=== PATIENT | male | born 1935 | race Caucasian/White ===

== ENCOUNTER 2017-05-30 08:33 | Outpatient (CLI) | payer MEDICARE, OTHER ==
[~2017-05-30] VITALS: Ht 177.8 cm; Wt 91.4 kg
--- NOTE | ~2017-05-30 | HEMODYNAMI ---
PATIENT:SONAM BANEGAS MEDICAL RECORD: [id number] : 33 LOCATION:D.CAT ADMISSION DATE: 05/30/17 Generatedon:05/30/201711:43 Patient name: SONAM BANEGAS Patient #: [id number] SSN: : 1935 Date of study: 05/30/2017 Page: Of Hemodynamic Procedure Report Patient Data Patient Demographics Procedure consent was obtained First Name: SONAM Gender: Male Last Name: BASSAM : 1935 Middle Initial: B Age: 81 year(s) Patient #: [id number] Race: Additional ID: [id number] Contact details Address: [address] [place] [address] State: [place] City: [facility] Zip code: [address] Past Medical History Allergies: No known allergies Admission Admission Data Admission Date: 05/30/2017 Admission Time: 8:33 Procedure Procedure Types Cath Procedure Diagnostic Procedure PPM/ICD Permanent Pacer Generator Exg. Procedure Description Procedure Date Procedure Date: 05/30/2017 Procedure Start Time: 10:36 Procedure Staff Name Function Glenroy Mccord MD Assisting physician Edmund Bain MD Performing Physician Chloe Rendon RN Nurse Cullen Sinha RT Scrub Pierce Magaña RT Monitor Procedure Data Cath Procedure Estimated blood loss: 10 ml Procedure Medications Medication Administration Route Dosage Ancef (1Gm/50ml NS) I.V.P.B 1 g Versed I.V. 1 mg Fentanyl I.V. 50 mcg Lidocaine 1% with added to field 20 ml Epi Bupivacaine 0.5% added to field 10 ml Hemodynamics Rest Heart Rate: 66 (bpm) Snapshots Pre Cath Intra NCS Post Cath Vital Signs Time Heart Resp SPO2 NIBP (mmHg) Rhythm Pain Sedation Rate (ipm) (%) Status Level (bpm) 10:58:50 64 16 97 116/82(105) NSR 0 (11) 10(A) , No pain 11:02:58 65 15 95 124/80(108) NSR 0 (11) 10(A) , No pain 11:07:10 65 13 91 122/79(105) NSR 0 (11) 10(A) , No pain 11:11:20 64 16 96 129/81(94) NSR 0 (11) 10(A) , No pain 11:15:32 66 18 92 130/82(111) NSR 0 (11) 10(A) , No pain 11:19:42 65 13 94 129/83(112) NSR 0 (11) 10(A) , No pain 11:23:54 64 14 92 136/83(113) NSR 0 (11) 9(A) , No pain 11:28:51 60 24 90 133/80(118) NSR 0 (11) 9(A) , No pain 11:33:03 60 14 94 132/84(112) NSR 0 (11) 9(A) , No pain 11:37:48 39 12 90 122/88(105) NSR 0 (11) 10(A) , No pain 11:42:00 60 14 95 135/77(113) NSR 0 (11) 10(A) , No pain Medications Time Medication Route Dose Verified Delivered Reason Notes Effectiv eness by by 11:15:08 Ancef I.V.P.B 1 g Chloe Chloe Per (1Gm/50ml Justice Justice physician NS) RN RN 11:15:25 Lidocaine added 20 ml Chloe Chloe used for 1% with Epi to Justice Justice procedure field RN RN 11:15:43 Bupivacaine added 10 ml Chloe Chloe used for 0.5% to Justice Justice procedure field RN RN 11:19:42 Versed I.V. 1 mg Chloe Chloe for Justice Justice sedation RN RN 11:19:57 Fentanyl I.V. 50 Chloe Chloe for mcg Justice Justice sedation RN parimutuel cashier Log Time Note 10:36:43 Informed consent obtained and on chart 10:36:48 Diagnostic Cath Status : Elective 10:38:53 Pierce Magaña RT(R) (CV) sent for patient. Start room use. 10:38:56 Time tracking: Regular hours 10:39:01 Plan of Care:Hemodynamics will remain stable., Cardiac rhythm will remain stable., Comfort level will be maintained., Respiratory function will remain adequate., Patient/ family verbilizes understanding of procedure., Procedure tolerated without complication., Recovers from procedure without complications.. 10:45:44 Patient received from Pre/Post Procedure Room to CCL 3 Alert and oriented. Tansferred to table in Supine position. 10:45:46 Warm blankets applied, and africa hugger turned on for patient comfort. 10:45:47 Correct patient and procedure confirmed by team. 10:45:52 ECG and BP/O2 sat monitors applied to patient. 10:57:50 Vital chart was started 11:10:25 Medline Cath Pack opened to sterile field. 11:10:47 Baseline sample Acquired. 11:11:17 Rhythm: paced 11:11:38 Full Disclosure recording started 11:12:31 H&P Date Dictated: 05/11/2017 Within 30 days and on chart., H&P Addendum completed by physician on day of procedure. (MUST COMPLETE FOR ALL OUTPATIENTS). 11:12:34 Pre-procedure instructions explained to patient. 11:12:35 Pre-op teaching completed and patient verbalized understanding. 11:12:38 Family in waiting room. 11:15:08 Ancef (1Gm/50ml NS) 1 g I.V.P.B was administered by Chloe Rendon RN; Per physician; 11:15:25 Lidocaine 1% with Epi 20 ml added to field was administered by Chloe Rendon RN; used for procedure; 11:15:43 Bupivacaine 0.5% 10 ml added to field was administered by Chloe Rendon RN; used for procedure; 11:16:55 Patient NPO since Midnight. 11:17:19 Patient allergic to No known allergies 11:17:22 Is the patient allergic to Iodine/contrast media? No. 11:17:25 Is patient on blood thinner?No 11:17:29 ----Pre-sedation anethsthesia assessment.---- 11:17:32 Previous problem with sedation/anesthesia? No ? 11:17:41 Snore? Yes 11:17:42 Sleep apnea? No 11:17:44 Deviated septum? No 11:17:45 Opens mouth fully? Yes 11:17:47 Sticks out tongue? Yes 11:17:51 Airway obstruction? No ? 11:18:04 Dentures? Yes implant 11:18:20 Patient pain scale 0/10 ?. 11:18:30 IV patent on arrival in right hand with 0.9% NaCl at [facility] 11:18:42 Left chest area was prepped with chlora-prep and draped in sterile fashion 11:18:44 Alarms reviewed by R. N. 11:18:45 Sharps counted by scrub and verified by R.N. 11:18:59 Physician arrived 11:18:59 --------ALL STOP TIME OUT------ 11:19:00 Final Timeout: patient, procedure, and site verified with staff and physician. All members of the team are in agreement. 11:19:04 Left chest site verified by team. 11:19:08 Physical assessment completed. ASA score P 2 - A patient with mild systemic disease as per Glenroy Mccord MD. 11:19:13 Sedation plan: IV Moderate Sedation Versed, Fentanyl 11:19:42 Versed 1 mg I.V. was administered by Chloe Rendon RN; for sedation; 11:19:57 Fentanyl 50 mcg I.V. was administered by Chloe Rendon RN; for sedation; 11:20:36 3.0 Vicryl Multipack [id number] opened to sterile field. 11:20:37 5.0 Monocryl PS3 [id number] opened to sterile field. 11:20:49 Medtronic Adapta PPM Dual Generator opened to sterile field. 11:20:55 Cautery Tip Outside Sales Executive opened to sterile field. 11:20:57 Cautery Pushbutton Pencil opened to sterile field. 11:21:33 Grounding pad site Left thigh. 11:21:35 Grounding pad site free from injury. 11:22:52 Pre sharps counted by scrub and verified by RN: Sutures: 9 Sponges: 5 Stick needles: 0 Skin needles: 2 Blade: 1 Cautery: 1 11:23:40 Lidocaine 1% w/epi and Bupivacaine 0.5% to left subclavicular area by Glenroy Mccord MD. 11:23:45 Incision made to left subclavicular area. 11:24:42 Generator pocket made/opened. 11:26:08 OLD GENERATOR REMOVED 11:26:24 PPM Dual was removed.. 11:26:31 PPM Dual was attached to lead(s) and inserted into pocket. 11:27:56 Mepilex Dressing opened to sterile field. 11:32:38 Device pocket was irrigated with Ancef. 11:33:01 Subcutaneous closure was completed with 3-0 vicryl. 11:33:24 Skin closure was completed with 5-0 monocryl. 11:38:30 Procedure ended.(Physican Out) 11:39:19 Post sharps counted by scrub and verified by RN: Sutures: 9 Sponges: 5 Stick needles: 0 Skin needles: 2 Blade: 1 Cautery: 1 11:39:38 Sharps counted by scrub and verified by R.N. 11:39:44 Insertion/operative site no bleeding no hematoma. 11:39:57 Post-op/insertion site Left Subclavian vein dressed using a Mepilex dressing. 11:40:06 Post right subclavian vein:stable 11:40:14 Post-procedure physical assessment completed. ASA score P 2 - A patient with mild systemic disease as per Glenroy Mccord MD. 11:40:18 Post procedure rhythm: paced 11:40:31 Estimated blood loss: 10 ml 11:40:36 Post procedure instruction explained to patient.Patient verbalizes understanding. 11:40:37 Patient needs reinforcement of post procedure teaching. 11:40:39 Procedure and supply charges have been captured, reviewed, submitted and are correct. 11:42:12 SEE [employer] REPORT IN CHART FOR NEW PACER PARAMETERS 11:42:18 Vital chart was stopped 11:42:19 See physician's report for complete and final results. 11:42:22 Report given to Pre/Post Procedure Room. 11:42:26 Patient transfered to Pre/Post Procedure Room with Stretcher. 11:42:53 End room use (Document Last) Device Usage Item Name Manufacture Quantity Catalog Hospital Part Current Minimal Lo t# / Number Charge Number Stock Stock Serial# Code Cautery Microtek 1 [id number] 5 [employer] Outside Sales Executive Mepilex Cardinal 1 [id number] 5 Dressing Health Cautery Microtek 1 [id number] [id number] 5 Pushbutton [employer] Pencil Medtronic Medtronic 1 [id number] 5 [id number] 623H EXP: Adapta PPM Dual Generator Medline Cardinal 1 [id number] 5 Cath Pack Health 3.0 Vicryl Ethicon 1 [id number] 5 Multipack [id number] 5.0 Ethicon 1 [id number] 5 Monocryl PS3 [id number] Signature Audit [place] Stage Time Signature Unsigned Intra-Procedure 05/30/2017 Pierce Magaña 11:43:35 AM RT(R) (CV) Signatures Monitor : Pierce Magaña RT Signature : Date : Time : [place] [address] [place] [address]
[2017-05-30] MEDS ORDERED: CATAPRES0.1 MG PO (09:13)
[2017-05-30] MEDS ORDERED: NORVASC10 MG PO (09:13)
[2017-05-30] MEDS ORDERED: PRADAXA150 MG PO (09:13)
[2017-05-30] MEDS ORDERED: PEPCID AC20 MG PO (09:14)
[2017-05-30] MEDS ORDERED: BETAPACE 120 M120 MG PO (09:14)
[2017-05-30] MEDS ORDERED: FISH OIL 1,0001 CA1 PO (09:15)
[2017-05-30] MEDS ORDERED: OXYBUTYNIN15 MG/BOTT PO (09:15)
[2017-05-30] MEDS ORDERED: BENICAR HCT 40-1 TA1 PO (09:15)
[2017-05-30] MEDS ORDERED: ASCORBIC ACID500 MG PO (09:16)
[2017-05-30] MEDS ORDERED: CALCIUM 250+D T1 TAB PO (09:16)
[2017-05-30] MEDS ORDERED: GLUCOSAMINE & C1 CAP PO (09:16)
[2017-05-30 09:17] VITALS: BP 115/76; Ht 177.8 cm; Wt 91.4 kg
[2017-05-30 09:43] LABS: APTT 29.1 SECONDS (22.8-39.4); CALC OSMOLALITY 289 mosm/kg (275-300); CALCIUM 9.3 mg/dL (8.5-10.1); CARBON DIOXIDE 27.7 mmol/L (21.0-32.0); CHLORIDE - SERUM 104 mmol/L (98-107); GLUCOSE 118 mg/dL (74-106); INR 1.03 (0.85-1.17); POTASSIUM - SERUM 4.3 mmol/L (3.5-5.1); PROTIME 13.3 SECONDS (11.6-15.0); SODIUM 141 mmol/L (136-145); UREA NITROGEN 34 mg/dL (7-18); eGFR NON AFRICAN AMERICAN 76 mL/min (90-120)
[2017-05-30 09:53] LABS: HEMATOCRIT 39.6 % (42.0-54.0); HEMOGLOBIN 13.3 g/dL (13.5-17.5); MCH 32.2 pg (26.0-34.0); MCHC 33.6 g/dL (31.0-37.0); MCV 95.9 fL (80.0-100.0); MEAN PLATELET VOLUME 11.5 fL (7.4-10.4); RBC 4.13 10x6/uL (4.20-6.10); RDW 13.3 % (11.5-14.5)
[2017-05-30] MEDS ORDERED: HYDROCODONE-APA1 TAB PO (11:38)
--- NOTE | 2017-05-30 12:05 | NUR ---
1150 RECEIVED PT FROM SURG PHYSICIAN ASST, PT IS ALERT, DENIES ANY C/O PAIN OR NAUSEA. DRESSING TO LEFT UPPER CHEST IS CDI, PO FLUIDS AND SANDWICH SERVED. AT BEDSIDE. RR EVEN AND UNLABORED. VSS, PACED RHYTHM AT 60. CALL LIGHT IN REACH.
--- NOTE | 2017-05-30 12:05 | NUR ---
1205 PT TOLERATING SANDWICH WITH NO C/O. DRESSING REMAINS CDI. PACED RHYTHM, RATE OF 60. AT BEDSIDE, PT DENIES ANY C/O OR NEED AT THIS TIME.
--- NOTE | 2017-05-30 12:53 | NUR ---
PIV REMOVED WITH DRESSING APPLIED. PACE MAKER SITE CDI. VERBAL AND WRITTEN DISCHARGE GONE OVER WITH PATIENT AND . LEFT VIA WC TO [facility] FOR TRANSPORT HOME
--- NOTE | 2017-06-02 14:51 | OP ---
PATIENT NAME: SONAM BANEGAS MEDICAL RECORD: [id number] :33 LOCATION:D.CAT ADMISSION DATE: SURGEON: DENILSON WOOD MD DATE OF OPERATION: 05/30/2017 PREOPERATIVE DIAGNOSES: 1. End-of-life pacemaker generator. 2. Hypertension. 3. Hypercholesterolemia. 4. Atrial fibrillation. 5. Sick sinus syndrome. POSTOPERATIVE DIAGNOSES: 1. End-of-life pacemaker generator. 2. Hypertension. 3. Hypercholesterolemia. 4. Atrial fibrillation. 5. Sick sinus syndrome. PROCEDURE: Left subclavian vein generator exchange. SURGEON: Denilson Wood MD. REPORT OF PROCEDURE: The patient's left chest was prepped and draped in sterile fashion. A 20 mL of 1% lidocaine combined with 0.25% Marcaine with epinephrine were infused into the surrounding tissues. A skin incision was made overlying the pacemaker and electrocautery was used to dissect through the subcutaneous tissue. Once the pacemaker was visualized, it was removed from the subcutaneous pouch. The pacemaker was exchanged for a new generator. The new generator was placed in to the subcutaneous pouch. The subcutaneous tissues were irrigated out and then reapproximated with interrupted 3-0 Vicryl and the skin was closed with running subcutaneous 5-0 Monocryl. COMPLICATIONS: None. CONDITION: Stable. ANESTHESIA: Local. BLOOD LOSS: Minimal. TRANSINT:[id number] Voice Confirmation ID: [id number] DOCUMENT ID: [id number] DENILSON WOOD MD at 1451 CC: SOFI MUELLER MD [id number] DICTATION DATE: 05/30/17 1137 METALLURGICAL INSPECTOR: 05/30/178 DEP CLI 05/30/17 [facility] [address] [place] [address]
== END 2017-05-30 13:00 | disposition home or self-care (01) ==
LOC: D.CATH 08:33
PROVIDERS: Internal Medicine Interventional Cardiology
DX: Z45.010 Encounter for checking and testing of cardiac pacemaker pulse generator [battery] (principal); I10 Essential (primary) hypertension; E78.00 Pure hypercholesterolemia, unspecified; I48.91 Unspecified atrial fibrillation; I49.5 Sick sinus syndrome; Z01.812 Encounter for preprocedural laboratory examination

== ENCOUNTER 2017-05-31 14:58 | Outpatient (CLI) | payer MEDICARE, OTHER ==
[2017-05-31] VITALS (14 sets, daily range): BP systolic 120–135; BP diastolic 47–79; Ht 177.8 cm; Wt 92.3 kg
[~2017-05-31] VITALS: Ht 177.8 cm; Wt 92.3 kg
--- NOTE | ~2017-05-31 | HEMODYNAMI ---
PATIENT:SONAM BANEGAS MEDICAL RECORD: [id number] : 33 [address] [id number] ADMISSION DATE: 05/31/17 Generatedon:05/31/201716:53 Patient name: SONAM BANEGAS Patient #: [id number] SSN: : [id number] Date of study: 05/31/2017 Page: Of Hemodynamic Procedure Report Patient Data Patient Demographics Procedure consent was obtained First Name: SONAM Gender: Male Last Name: BASSAM : 1935 [facility] Initial: B Age: 81 year(s) Patient #: [id number] Race: Additional ID: [id number] Contact details Address: [address] [place] [address] State: [place] City: [facility] Zip code: [address] Past Medical History Allergies: No known allergies Admission Admission Data Admission Date: 05/31/2017 Admission Time: 15:36 Room #: [facility] Lab Results Lab Result Date: 05/31/2017 Lab Result Time: 0:00 Biochemistry Name Units Result Min Max BUN mg/dl 31 --(----)-* 7 18 Creatinine mg/dl 1.1 --(--*-)-- 0.6 1.3 CBC Name Units Result Min Max Hemoglobin g/dl 13.1 -*(----)-- 13.5 17.5 Procedure Procedure Types Cath Procedure Diagnostic Procedure [facility] w/Coronaries FFR/IVUS Intra-Coronary IVUS Initial PCI Procedure Coronary Stent Initial Miscellaneous Procedures Moderate Sedation up to 30 minutes Procedure Description Procedure Date Procedure Date: 05/31/2017 Procedure Start Time: 16:29 Procedure End Time: 16:53 Procedure Staff Name Function Edmund Bain MD Performing Physician Guero Ozuan RN Nurse Cullen Sinha RT Monitor Torres Miller RT Scrub Procedure Data Cath Procedure Fluoroscopy Diagnostic fluoroscopy Total fluoroscopy Time: 5.3 time: 5.3 min min Diagnostic fluoroscopy Total fluoroscopy dose: 829 dose: 829 mGy mGy Contrast Material Contrast Material Type Amount (ml) Isovue 300 113 Entry Location Entry Primary Successful Side Size Upsize Upsize Entry Closure Succes sful Closure Location (Fr) 1 (Fr) 2 (Fr) Remarks Device Remarks Femoral Right 6 Fr Exoseal artery Short Estimated blood loss: 10 ml Diagnostic catheters Device Type Used For End Catheter Placement Cordis 5Fr Pigtail Procedure Catheter (MP) Cordis 5Fr JL 4.0 Procedure Catheter (MP) Cordis 5Fr 3DRC Catheter Procedure (MP) Procedure Complications No complications Procedure Medications Medication Administration Route Dosage Oxygen NC 2 l/min Lidocaine 2% added to field 20 Heparin Flush Bag added to field 2 bags (1000units/500ml NS) 0.9% NaCl I.V. 100 ml/hr Versed I.V. 1 mg Fentanyl I.V. 50 mcg Heparin Bolus I.V. 4000 units Integrilin (Bolus I.V. 8.5 ml 2mg/ml) Versed I.V. 1 mg Fentanyl I.V. 50 mcg Versed I.V. 0.5 mg Plavix P.O. 600 mg Hemodynamics Rest HGB: 13.1 (g/dl) Heart Rate: 61 (bpm) Snapshots Pre Cath Intra NCS Post Cath Vital Signs Time Heart Resp SPO2 etCO2 NS0eyun NIBP (mmHg) Rhythm Pain Sedation Rate (ipm) (%) (mmHg) (mmHg) Status Level (bpm) 16:23:45 60 18 99 0 0 136/73(110) NSR 0 (11) 10(A) , No pain 16:27:59 60 15 96 0 0 134/68(107) NSR 0 (11) 10(A) , No pain 16:32:11 61 15 96 0 0 126/73(87) NSR 0 (11) 9(A) , No pain 16:36:19 59 16 95 0 0 127/78(93) NSR 0 (11) 9(A) , No pain 16:40:31 60 15 97 0 0 124/71(103) NSR 0 (11) 9(A) , No pain 16:44:41 60 14 95 0 0 125/74(108) NSR 0 (11) 9(A) , No pain 16:48:46 59 15 98 0 0 127/77(96) NSR 0 (11) 9(A) , No pain 16:52:34 61 16 98 0 0 124/71(100) NSR 0 (11) 10(A) , No pain Medications Time Medication Route Dose Verified Delivered Reason Notes Effectiveness by by 16:22:57 Oxygen NC 2 Edmund Buffie used for l/min Taya Ozuna RN procedure 16:23:03 Lidocaine 2% added 20ml Edmunddelia Shaffer for local to vial Taya Bain MD anesthetic field 16:23:09 Heparin Flush added 2 Edmund Edmund used for Bag to bags Taya Bain MD procedure (1000units/500ml field NS) 16:23:17 0.9% NaCl I.V. 100 Edmund Buffie Per physician ml/hr Taya Ozuna RN 16:25:46 Versed I.V. 1 mg Edmund Moiseie for sedation Taya Ozuna RN 16:25:52 Fentanyl I.V. 50 Edmund Moiseie for sedation mcg Taya Ozuna RN 16:29:17 Versed I.V. 1 mg Edmund Jack for sedation Taya Ozuna RN 16:29:20 Fentanyl I.V. 50 Edmund Moiseie for sedation mcg Taya Ozuna RN 16:34:10 Heparin Bolus I.V. 4000 Edmund Moiseie for verifi ed units Taya Ozuna RN anticoagulation with dr bain 16:37:10 Integrilin I.V. 8.5 Edmund Moiseie for Wastd (Bolus 2mg/ml) ml Taya Ozuna RN antiplatelet 1.5 ml therapy of vial. 16:43:14 Versed I.V. 0.5 Edmund Moiseie for sedation mg Taya Ozuna RN 16:51:40 Plavix P.O. 600 Edmund Moiseie for mg Taya Ozuna RN antiplatelet therapy Procedure Log Time Note 15:50:40 Torres Miller RT(R) sent for patient. Start room use. 16:04:41 Time tracking: Regular hours 16:04:46 Plan of Care:Hemodynamics will remain stable., Cardiac rhythm will remain stable., Comfort level will be maintained., Respiratory function will remain adequate., Patient/ family verbilizes understanding of procedure., Procedure tolerated without complication., Recovers from procedure without complications.. 16:07:52 Lab Result : Creatinine 1.1 mg/dl 16:07:52 Lab Result : BUN 31 mg/dl 16:07:52 Lab Result : Hemoglobin 13.1 g/dl 16:15:41 Patient arrives emergently. 16:15:48 Patient received from ED to CCL 1 Alert and oriented. Tansferred to table in Supine position. 16:15:50 Warm blankets applied, and africa hugger turned on for patient comfort. 16:15:50 Correct patient and procedure confirmed by team. 16:15:52 Signed procedure consent form obtained from patient. 16:15:56 ECG and BP/O2 sat monitors applied to patient. 16:22:36 Vital chart was started 16:22:57 Oxygen 2 l/min NC was administered by Guero Ozuna RN; used for procedure; 16:23:03 Lidocaine 2% 20ml vial added to field was administered by Edmund Bain MD; for local anesthetic; 16:23:04 Baseline sample Acquired. 16:23:09 Heparin Flush Bag (1000units/500ml NS) 2 bags added to field was administered by Edmund Bain MD; used for procedure; 16:23:11 Rhythm: paced 16:23:12 Full Disclosure recording started 16:23:15 H&P Date Dictated: 05/31/2017 Emergent; H&P N/A. 16:23:17 0.9% NaCl 100 ml/hr I.V. was administered by Guero Ozuna RN; Per physician; 16:23:17 Pre-procedure instructions explained to patient. 16:23:18 Pre-op teaching completed and patient verbalized understanding. 16:23:19 Family in patients room. 16:23:22 Patient NPO since Midnight. 16:23:23 Is the patient allergic to Iodine/contrast media? No. 16:23:25 Is patient on blood thinner?No 16:23:26 Patient diabetic? No. 16:23:29 Previous problem with sedation/anesthesia? No ? 16:23:30 Snore? Yes 16:23:31 Sleep apnea? No 16:23:32 Deviated septum? No 16:23:33 Opens mouth fully? Yes 16:23:33 Sticks out tongue? Yes 16:23:35 Airway obstruction? No ? 16:23:37 Dentures? No ? 16:23:40 Pre procedure: right dorsailis pedis pulse 1+ Palpable, but thready & weak; easily obliterated 16:23:43 Patient pain scale 0/10 ?. 16:23:46 IV patent on arrival in left forearm with 0.9% NaCl at [facility]. 16:23:48 Lab results completed and on chart. 16::52 Right groin area was prepped with chlora-prep and draped in sterile fashion 16:23:53 Alarms reviewed by R. N. 16::54 Sharps counted by scrub and verified by R.N. 16::55 --------ALL STOP TIME OUT------ 16::55 Final Timeout: patient, procedure, and site verified with staff and physician. All members of the team are in agreement. 16::57 Right groin site verified by team. 16:24:02 Physical assessment completed. ASA score P 2 - A patient with mild systemic disease as per Edmund Bain MD. 16:24:06 Sedation plan: IV Moderate Sedation Versed, Fentanyl 16::46 Versed 1 mg I.V. was administered by Guero Ozuna RN; for sedation; 16:25:52 Fentanyl 50 mcg I.V. was administered by Guero Ozuna RN; for sedation; 16::52 Zero performed for pressure channel P1 16:25:54 Zero performed for pressure channel P1 16:26:29 Use device set Femoral Dx 16:26:30 Tegaderm 4 x 4 opened to sterile field. 16:26:31 Acist Hand Control opened to sterile field. 16:26:31 Acist Manifold opened to sterile field. 16:26:33 Acist Syringe opened to sterile field. 16:26:33 Bag Decanter opened to sterile field. 16:26:33 Medline Cath Pack opened to sterile field. 16:26:35 St Tsyon 260cm J .035 wire opened to sterile field. 16:26:36 Diagnostic Infinity 5Fr Multipack catheter opened to sterile field. 16:26:52 Terumo 6Fr [place] Sheath opened to sterile field. 16:29:16 Procedure started. 16:29:17 Versed 1 mg I.V. was administered by Guero Ozuna RN; for sedation; 16:29:20 Fentanyl 50 mcg I.V. was administered by Guero Ozuna RN; for sedation; 16:29:20 Local anesthetic to right femoral artery with Lidocaine 2% by Edmund Bain MD.INITIAL ACCESS ONLY 16:29:53 A 6 Fr Short sheath was inserted into the Right Femoral artery 16:30:00 A Cordis 5Fr Pigtail Catheter (MP) was advanced over the wire and used for Procedure. 16:30:41 LV angiography performed. 16:30:43 LV gram done using JUNG 16:30:48 EF : 40 % 16:30:52 Injector settings: Ml/sec: 10, Volume: 20, 16:30:54 Catheter removed. 16:31:01 A Cordis 5Fr JL 4.0 Catheter (MP) was advanced over the wire and used for Procedure. 16:31:41 LCA angiography performed. 16:31:43 Caro Whisper J 300cm 0.014 guide wire opened to sterile field. 16:31:43 ScoutforceixCompak Inflation Kit opened to sterile field. 16:32:24 Catheter removed. 16:32:28 A Cordis 5Fr 3DRC Catheter (MP) was advanced over the wire and used for Procedure. 16:32:37 RCA angiography performed. 16:32:39 Catheter removed. 16:33:24 Elrama [place] Eagleye IVUS Catheter opened to sterile field. 16:33:25 Cordis 6FR XBLAD 4.0 guide catheter opened to sterile field. 16:34:10 Heparin Bolus 4000 units I.V. was administered by Guero Ozuna RN; for anticoagulation; verified with dr bain 16:34:18 6 Fr XBLAD 4 guide catheter was inserted over the wire 16:35:18 Guide Catheter removed. unable to cannulate vessel. 16:35:27 Medtronic Launcher 6Fr EBU 4.0 guide catheter opened to sterile field. 16:35:36 6 Fr EBU 4 guide catheter was inserted over the wire 16:36:26 Whisper wire advanced. 16:37:00 Wire advanced across lesion and down the Circ. 16:37:03 IVUS catheter advanced over wire. 16:37:10 Integrilin (Bolus 2mg/ml) 8.5 ml I.V. was administered by Guero Ozuna RN; for antiplatelet therapy; Wastd 1.5 ml of vial. 16:37:37 IVUS pass to Circ lesion performed. 16:37:49 IVUS catheter removed over wire. 16:38:05 Wire redirected down the LAD. 16:40:36 Study PCI Site: [place] mLAD has 80% stenosis. 16:40:39 ACC Pre-intervention ARMANI Flow is 3. 16:41:15 Wire advanced across lesion. 16:42:14 Inflation Number: 1 A Biofreedom 2.25 x 24 Stent (No Cost Implant) was prepped and advanced across the Mid LAD. The stent was deployed at 15 TREVOR for 0:10 (min:sec). 16:43:14 Versed 0.5 mg I.V. was administered by Guero Ozuna RN; for sedation; 16:44:46 Stent catheter was removed intact over wire. 16:44:58 Inflation Number: 2 A Biofreedom 2.25 x 11 Stent (No Cost Implant) was prepped and advanced across the Mid LAD. The stent was deployed at 17 TREVOR for 0:10 (min:sec). 16:45:44 Stent catheter was removed intact over wire. 16:45:44 Wire removed. 16:45:45 Guide catheter removed. 16:46:04 Cordis 6Fr Exoseal opened to sterile field. 16:46:15 Sheath removed intact; hemostasis achieved with Exoseal to the Right Femoral artery. 16:46:18 Procedure ended.(Physican Out) 16:47:18 Fluoroscopy time 05.30 minutes. 16:47:22 Fluoroscopy dose: 829 mGy 16:47:22 Flurop Dose total: 829 16:47:25 Contrast amount:Isovue 300 113ml. 16:47:27 Sharps counted by scrub and verified by R.N. 16:47:33 Insertion/operative site no bleeding no hematoma. 16:47:36 Post-op/insertion site Right Femoral artery dressed using a 4 x 4 and Tegaderm. 16:47:38 Post Procedure Pulses reassessed and unchanged 16:47:41 Post-procedure physical assessment completed. ASA score P 2 - A patient with mild systemic disease as per Edmund Bain MD. 16:47:59 Post procedure rhythm: paced 16:48:02 Estimated blood loss: 10 ml 16:48:06 Post procedure instruction explained to patient.Patient verbalizes understanding. 16:48:07 Patient needs reinforcement of post procedure teaching. 16:48:47 Procedure type changed to Cath procedure, Diagnostic procedure, LHC, LHC w/Coronaries, FFR/IVUS, Intra-Coronary IVUS Initial, PCI procedure, Coronary Stent Initial, Miscellaneous Procedures, Moderate Sedation up to 30 minutes 16:48:51 Procedure Complication : No complications 16:50:08 Procedure and supply charges have been captured, reviewed, submitted and are correct. 16:51:40 Plavix 600 mg P.O. was administered by Guero Ozuna RN; for antiplatelet therapy; 16:53:04 Vital chart was stopped 16:53:04 See physician's report for complete and final results. 16:53:06 Report given to CVICU. 16:53:10 Patient transfered to CVICU with Bed. 16:53:11 Procedure ended. 16:53:11 Full Disclosure recording stopped 16:53:14 End room use (Document Last) Intervention Summary Intervention Notes Time ActionType Lesion and Equipment Action# Pressure Duration Attributes Used 16:42:14 Place stent Mid LAD Biofreedom 1 15 00:10 2.25 x 24 Stent (No Cost Implant) 16:44:58 Place stent Mid LAD Biofreedom 2 17 00:10 2.25 x 11 Stent (No Cost Implant) Device Usage Item Name Manufacture Quantity Catalog Hospital Part Current Minimal Lot# / Number Charge Number Stock Stock Serial# Code Tegaderm 4 3M 1 1626W [id number] [id number] [id number] 5 x 4 Acist Hand Acist 1 24883 151985 831655 057461 5 Control Medical Systems Inc Acist Acist 1 21374 180519 641174 797212 5 Manifold Medical Systems Inc Acist Acist 1 46273 388737 517908 615628 20 Syringe Medical Systems Inc Bag Microtek 1 2002S 167495 59737 476310 5 DecSleep.FM Inc. Medline Cardinal 1 [id number] 846403 08212 8197[address] Tyson 1 524783 004867 485347 065125 30 260cm J .035 wire Diagnostic Cardinal 1 [id number] 884887 78805 637739 30 Infinity Health 5Fr Multipack catheter Terumo 6Fr Terumo 1 [id number] 474360 050894 418787 40 Alexandria Sheath Cordis 5Fr Cardinal 1 816058 5 Pigtail Health Catheter (MP) Cordis 5Fr Cardinal 1 442755 5 JL 4.0 Health Catheter (MP) Caro Caro 1 [id number] 070143 186372 922082 5 Whisper J Vascular 300cm 0.014 guide wire Merit Merit 1 [id number] 447554 909313 387113 15 BasixCompak Medical Inflation Kit Cordis 5Fr Cardinal 1 [id number] [address] [place] [address] Catheter (MP) Jessenia Holdeno 1 [id number] 360228 705879 607907 8 [place] Eagleye IVUS Catheter Cordis 6FR Cardinal 1 [id number] 390465 882509 876114 3 XBLAD 4.0 Health guide catheter Medtronic Medtronic 1 [id number] 578479 31083 469332 1 Launcher 6Fr EBU 4.0 guide catheter Biofreedom [employer] [address] [facility]2-2224 176248 603261 5 [id number] 2.25 x 24 Europe SA Stent (No Cost Implant) Biofreedom [employer] [address] [facility]-2211 713623 528334 5 [id number] 2.25 x 11 Europe SA Stent (No Cost Implant) Cordis 6Fr Cardinal 1 EX600 842967 985256 352000 10 [facility] TILE Financial Signature Audit [place] Stage Time Signature Unsigned Intra-Procedure 05/31/2017 Cullen Sinha 4:53:35 PM RT(R) Signatures Monitor : Cullen Sinha RT Signature : Date : Time : [id number] [place] [address]
[2017-05-31 13:10] LABS: BASOPHILS 0.8 % (0-2); EOSINOPHILS 5.5 % (0-7); HEMATOCRIT 38.5 % (42.0-54.0); HEMOGLOBIN 13.1 g/dL (13.5-17.5); IMMATURE GRANULOCYTES 0.2 % (0-5); LYMPHOCYTES 13.3 % (15-50); MCH 32.6 pg (26.0-34.0); MCV 95.8 fL (80.0-100.0); MEAN PLATELET VOLUME 10.9 fL (7.4-10.4); MONOCYTES 10.6 % (2-11); NEUTROPHILS 69.6 % (40-80); PLATELET COUNT 194 10x3/uL (130-400); RBC 4.02 10x6/uL (4.20-6.10); RDW 13.2 % (11.5-14.5)
[2017-05-31 13:21] LABS: ALBUMIN 3.5 g/dL (3.4-5.0); ALKALINE PHOSPHATASE 68 U/L (46-116); ALT (SGPT) 47 U/L (10-68); BILIRUBIN - TOTAL 0.54 mg/dL (0.2-1.3); CALC OSMOLALITY 285 mosm/kg (275-300); CALCIUM 9.2 mg/dL (8.5-10.1); CARBON DIOXIDE 29.3 mmol/L (21.0-32.0); CHLORIDE - SERUM 102 mmol/L (98-107); CREATININE - SERUM 1.1 mg/dL (0.6-1.3); GLUCOSE 106 mg/dL (74-106); POTASSIUM - SERUM 4.1 mmol/L (3.5-5.1); PROTEIN - SERUM 6.6 g/dL (6.4-8.2); SODIUM 140 mmol/L (136-145); UREA NITROGEN 31 mg/dL (7-18); eGFR NON AFRICAN AMERICAN 68 mL/min (90-120)
[2017-05-31 13:32] LABS: CHOL - HDL RATIO 2.5 ratio (2.3-4.9); CHOLESTEROL, TOTAL 154 mg/dL (0-200); CKMB 3.6 U/L (0.0-3.6); CREATINE KINASE 130 UL (21-232); HDL CHOLESTEROL 61 mg/dL (32-96); LDL CHOLESTEROL 82 mg/dL (0-100); LDL-HDL RATIO 1.3 ratio (1.5-3.5); TRIGLYCERIDE 57 mg/dL (30-200); TROPONIN-I 0.054 ng/mL (0.000-0.060)
[~2017-05-31 14:58] MED LIST: ASCORBIC ACID500 MG PO; BENICAR HCT 40-1 TA1 PO; BETAPACE 120 M120 MG PO; CALCIUM 250+D T1 TAB PO; CATAPRES0.1 MG PO; FISH OIL 1,0001 CA1 PO; GLUCOSAMINE & C1 CAP PO; HYDROCODONE-APA1 TAB PO; NORVASC10 MG PO; OXYBUTYNIN15 MG/BOTT PO; PEPCID AC20 MG PO; PRADAXA150 MG PO
--- NOTE | 2017-05-31 17:30 | NUR ---
RECIEVED PT TO ROOM FROM SIZE ROLLER OPERATOR. VSS AT THIS TIME. RIGHT GROIN DRESSING C/D/I. PPP. CALL LIGHT IN REACH. INSTRUCTED TO KEEP RIGHT LEG STRAIGHT. VERBALIZED UNDERSTANDING. CALL LIGHT IN REACH.
--- NOTE | 2017-05-31 19:40 | NUR ---
REC'D PT RESTING IN BED ON O2 @ 2LITERS, AWAKENS TO VERBAL STIMULI, PT DENIES PAIN OR NAUSEA, LEFT A/C PIV WITH NS @ 100CC/HR, RIGHT GROIN DRSG TO EXOSEAL, CDI NO BLEEDING OR HEMATOMA, PT REMAINS ON BEDREST AT THIS TIME, EXPLAINED TO PT HIS BEDREST WOULD BE UP AROUND 2129, VERBALIZES UNDERSTANDING, PPP, BED IN LOW POSITION, SR UP X 2, CALL LIGHT IN REACH.
--- NOTE | 2017-05-31 20:15 | NUR ---
PT HUNGRY, ICE WATER PROVIDED WILL ASSESS FOR NAUSEA BEFORE ADVANCING DIET
--- NOTE | 2017-05-31 20:35 | NUR ---
PT DENIES NAUSEA, PT PROVIDEDD WITH SANDWICH TRAY, BED PLACED IN [place] TO ASSIST WITH EATING
--- NOTE | 2017-05-31 21:05 | NUR ---
EVENING MEDS GIVEN, PT ATE 85% OF HIS MEAL, DENIES FURTHER NEEDS.
--- NOTE | 2017-05-31 21:45 | NUR ---
PT ALLOWED TO SIT UP AT THIS TIME, BED ADJUSTED FOR COMFORT, PT VOIDED 300 YELLOW URINE VIA URINAL, DENIES PAIN OR OTHER NEEDS, SR UP X 2, BED IN LOW POSITION, CALL LIGHT IN REACH.
--- NOTE | 2017-05-31 23:30 | NUR ---
PT RESTING ON RIGHT SIDE EYES CLOSED, REASSESSMENT COMPLETED, RIGHT GROIN DRSG REMAINS CDI, NO BLEEDING OR HEMATOM, PT DENIES PAIN OR NAUSEA, VSS, WILL CONT TO MONITOR FOR CHANGES.
[2017-06-01] VITALS (8 sets, daily range): BP systolic 122–144; BP diastolic 64–75
--- NOTE | 2017-06-01 01:00 | NUR ---
NO CHANGES IN STATUS AT THIS TIME, VSS, WILL CONT TO MONITOR FOR CHANGES.
--- NOTE | 2017-06-01 02:30 | NUR ---
PT AWAKE, URINAL EMPTIED OF 300CC CLEAR YELLOW URINE, RIGHT GROIN DRSG CDI NO BLEEDING OR HEMATOMA NOTED, QUESTIONS ANSWERED REGARDING RIGHT GROIN DRSG, PT DENIES PAIN OR OTHER NEEDS.
--- NOTE | 2017-06-01 04:00 | NUR ---
PT RESTING IN BED EYES CLOSED, RESP EVEN AND UNLABORED, BP STABLE, NO DISTRESS NOTED.
--- NOTE | 2017-06-01 06:00 | NUR ---
NO VISITORS IN AT THIS TIME, PT DENIES NEEDS, SR UP X 2, CALL LIGHT IN REACH.
--- NOTE | 2017-06-01 07:00 | NUR ---
SHIFT ASSESSMENT COMPLETE. SEE FLOW SHEET FOR FINDINGS. PT ALERT AND ORIENTED. BILATERAL PALPABLE PULSES UPPER AND LOWER. RIGHT GROIN SITE IS SOFT, DRESSING CLEAN, DRY AND INTACT. LEFT CHEST DRESSING IS CLEAN, DRY AND INTACT. PT ON ROOM AIR.
--- NOTE | 2017-06-01 07:50 | NUR ---
PT CALLED NURSE IN C/O FEELING "DISORIENTED" HE IS WORRIED HE DID SOMETHING WRONG WHEN HE GOT UP TO URINATE ABOUT AN HOUR OR SO AGO. HE SAYS HIS RIGHT LEG FEELS A LITTLE TINGLY. HAS STRONG PALPABLE PULSES IN BILATERAL LEGS. RIGHT GROIN ENTRY SITE IS SOFT, CLEAN AND DRY. BREATH SOUNDS CLEAR, NO DISTRESS. HEART RATE IN LOW 60'S, PACING. OXYGEN SATS UPPER 90'S. THERE IS NO DISTRESS NOTED OTHER THAN WHAT PATIENT DESCRIBES.
--- NOTE | 2017-06-01 08:18 | NUR ---
TONI FROM VP GENETIC TEAM OVER TO CHECK UP ON PATIENT. WAS ALERTED TO PATIENT COMPLAINT.
[2017-06-01] MEDS ORDERED: PLAVIX75 MG PO (10:13)
--- NOTE | 2017-06-02 11:24 | HP ---
PATIENT: SONAM BANEGAS MEDICAL RECORD: [id number] ACCOUNT: [id number] LOCATION:[facility] : 33 ADMISSION DATE: 05/31/17 HISTORY AND PHYSICAL EXAMINATION DIAGNOSES: 1. Unstable angina. 2. Sick sinus syndrome. 3. Status post pacemaker. 4. Pradaxa anticoagulation. 5. Hypertension. 6. Hyperlipidemia. 7. Paroxysmal atrial fibrillation. HISTORY OF PRESENT ILLNESS: This is a gentleman with a history of cardiac rhythm problems. No history of ischemic heart disease, underwent pacemaker exchange yesterday, got a dull aching sensation across the anterior chest. It broke out into a sweat and it radiated to his neck. This morning, his troponin is mildly elevated. He has not had a history of ischemic heart disease. PHYSICAL EXAMINATION: GENERAL APPEARANCE: Well-nourished, well-developed, appears stated age. Level of distress, comfortable. PSYCHIATRIC: Mental status, alert, normal affect. Orientation, oriented to time, place and person. EYES: Lids and conjunctiva, noninjected. No discharge, no pallor. ENT: Lips, teeth, gums, normal dentition. Oropharynx, no cyanosis, no pallor. NECK: Carotid arteries, bilateral normal upstroke, no bruits, no thrills. JUGULAR VEINS: No jugular venous pressure or distention. CERVICAL LYMPH NODES: Nontender, nonenlarged. THYROID: Not enlarged. Nontender. No nodules. LUNGS: Respiratory effort, unlabored. CHEST: Normal curvature. No thoracic deformity. No chest wall tenderness. Percussion, resonant. Auscultation, clear. No wheezes, no rales, no rhonchi. CARDIOVASCULAR: Precordial exam, nondisplaced. No heaves or pericardial thrills. Rate and rhythm, regular. Heart sounds, normal S1, normal S2. No S3, no gallop, no rub. Systolic murmur, not heard. Diastolic murmur, not heard. EXTREMITIES: No cyanosis, no edema. Peripheral pulses, full and equal in all extremities, except as noted. No bruits appreciated. ABDOMEN: Soft, nondistended. Normal aorta. No bruit. Nontender. No masses. Liver, nontender, no hepatomegaly. Spleen, nontender, no splenomegaly. MUSCULOSKELETAL: No joint tenderness. No joint swelling. No erythema. NEUROLOGICAL: Normal gait, normal strength, normal tone. SKIN: Warm and dry. REVIEW OF SYSTEMS: The patient reports easy bruising but reports no swollen glands. The patient reports no fever, no night sweats, no significant weight gain, no significant weight loss. No significant exercise tolerance. The patient reports no dry eyes, no irritation, no vision change. Patient reports no difficulty hearing and no ear pain. Patient reports no frequent nose bleeds or nose and sinus problems. Patient reports on arm pain on exertion. No shortness of breath while lying down. No history of heart murmur. Patient reports no cough, no wheezing or coughing up blood. Patient reports no abdominal pain, no vomiting. Normal appetite. No diarrhea and not vomiting blood. No nausea and no constipation. Patient reports no incontinence. No HISTORY AND PHYSICAL [id number] SONAM BANEGAS difficulty urinating. No hematuria. No increased frequency. Patient reports no muscle aches. No weakness, no arthralgias, no back pain. No swelling of the extremities. Patient reports no abnormal mole, no jaundice, no rashes. Reports no loss of consciousness. No weakness and no numbness. No seizures, dizziness, or headaches. The patient reports no depression, no sleep disturbance, feeling safe in a relationship and no alcohol abuse. Patient reports on fatigue. Reports no runny nose or sinus pressure. No itching, no hives, and no frequent sneezing. OVERALL IMPRESSION: Chest pain compatible with angina, abnormal troponin. Most likely he has hemodynamically significant coronary artery disease. We will proceed with coronary angiography. Further care depends upon findings of the angiography. TRANSINT:[id number] Voice Confirmation ID: [id number] DOCUMENT ID: [id number] SOFI MUELLER MD at 1124 CC: [id number] DICTATION DATE: 05/31/17 1557 SCROLL SHEAR OPERATOR: 05/31/17 2154 [facility] CLI 06/01/17 [place] [id number] [place] [id number]
--- NOTE | 2017-06-02 11:24 | OP ---
PATIENT NAME: SONAM BANEGAS MEDICAL RECORD: [id number] :33 LOCATION:D.CAT ADMISSION DATE: SURGEON: SOFI MUELLER MD DATE OF OPERATION: 05/31/2017 PROCEDURES: 1. PTCA stent LAD. 2. Intravascular ultrasound of left circumflex. 3. Left heart catheterization. 4. Selective coronary angiography. 5. Left ventriculogram. INDICATION: Angina, unstable, coronary artery disease. PROCEDURE IN DETAIL: After informed consent was obtained and after detailed explanation of risks, benefits as well as alternative therapies, the patient elected to proceed with angiogram and angioplasty. The right femoral area was prepped and draped in normal sterile fashion. The right femoral artery was cannulated via modified Seldinger technique with placement of 6-Macedonian sheath. All catheters exchanged through this sheath. FINDINGS: Left ventriculogram was performed in standard 30-degree JUNG view, reveals anteroapical hypokinesis, ejection fraction 40%. SELECTIVE CORONARY ANGIOGRAPHY: 1. Left main is with no significant angiographic disease. 2. Left anterior descending has 80% stenosis throughout the mid portion vessel. 3. Left circumflex has mild irregularities, intravascular ultrasound reveals that there is no greater than 20% to 30%. 4. Right coronary has mild irregularities, but no flow-limiting stenosis. PTCA STENT OF THE LAD: The stent used covering this lesion was a 2.25 x 24 and 2.25 x 11. This lesion was approximately 30 mm in length at 2.25 vessel ARMANI 3 flow before and after the intervention. Result was 0% residual stenosis. OVERALL IMPRESSION: Successful percutaneous transluminal coronary angioplasty stent of the left anterior descending going from 80% initial stenosis to 0% residual. TRANSINT:[id number] Voice Confirmation ID: [id number] DOCUMENT ID: [id number] SOFI MUELLER MD at 1124 CC: [id number] DICTATION DATE: 05/31/17 165 HORTICULTURE SUPERINTENDENT: 06/01/17 0055 [facility] CLI 06/01/[address] [address]
--- NOTE | 2017-06-02 11:24 | DS ---
PATIENT:SONAM SUH :33 MEDICAL RECORD: [id number] DISCHARGE SUMMARY ADMISSION DATE: 05/31/17 DISCHARGE DATE: 06/01/17 DISCHARGE DIAGNOSES: 1. Angina. 2. Coronary artery disease. 3. Percutaneous transluminal coronary angioplasty stent to left anterior descending this admission. 4. Sick sinus syndrome. 5. Paroxysmal atrial fibrillation. 6. Status post pacemaker. 7. Hypertension. HISTORY OF PRESENTATION: General Suh presented with anginal symptomatology, underwent cardiac catheterization revealing single vessel disease to the LAD, underwent successful PTCA stent of the LAD, had uneventful postop course. He was discharged to home with the addition of Plavix to his Pradaxa with no aspirin. He will follow up with [facility] in 1 month. TRANSINT:[id number] Voice Confirmation ID: [id number] DOCUMENT ID: [id number] SOFI MUELLER MD at 1124 CC: [id number] DICTATION DATE: 06/01/17 0903 BROOMCORN PRESS FEEDER: 06/02/17 0243 [facility] CLI 06/01/17 [place] [id number] [place] [address]
== END 2017-06-01 10:32 | disposition home or self-care (01) ==
LOC: OBSVTIME → D.CATH 14:58 → EDSTATUS 15:00 → OBSVTIME 15:36 → D.CVICU 15:36 → D.ER 15:36 → D.CVICU 16:50 → D.CATH 06-01 10:32 → D.CVICU 06-01 10:32
PROVIDERS: Emergency Medicine
DX: I25.110 Atherosclerotic heart disease of native coronary artery with unstable angina pectoris (principal); Z00.6 Encounter for examination for normal comparison and control in clinical research program; I49.5 Sick sinus syndrome; I48.0 Paroxysmal atrial fibrillation; I10 Essential (primary) hypertension; Z95.0 Presence of cardiac pacemaker
CPT/HCPCS: 93458; 92978; C9600

== ENCOUNTER 2019-07-10 10:13 | Outpatient (CLI) | payer MEDICARE, OTHER ==
[~2019-07-10] VITALS: Ht 177.8 cm; Wt 92.3 kg
--- NOTE | ~2019-07-10 | HEMODYNAMI ---
PATIENT:SONAM BANEGAS MEDICAL RECORD: [id number] : 33 LOCATION:DMustaphaCAT ADMISSION DATE: 07/10/19 Generatedon:07/10/201912:47 Patient name: SONAM BANEGAS Patient #: [id number] SSN: : 1935 Date of study: 07/10/2019 Page: Of Hemodynamic Procedure Report Patient Data Patient Demographics Procedure consent was obtained First Name: SONAM Gender: Male Last Name: BASSAM : 1935 [facility] Initial: B Age: 83 year(s) Patient #: [id number] Race: Additional ID: [id number] Contact details Address: [address] [place] [address] State: [place] City: [facility] Zip code: [address] Past Medical History Allergies: No known allergies Admission Admission Data Admission Date: 07/10/2019 Admission Time: 10:13 Procedure Procedure Types Cath Procedure Diagnostic Procedure Cardioversion External Procedure Description Procedure Date Procedure Date: 07/10/2019 Procedure Start Time: 12:38 Procedure End Time: 12:47 Procedure Staff Name Function Edmund Bain MD Performing Physician Cullen Sinha RT Monitor Tea Hagan RN Nurse Procedure Data Cath Procedure Fluoroscopy Diagnostic fluoroscopy Total fluoroscopy Time: 0 time: 0 min min Diagnostic fluoroscopy Total fluoroscopy dose: 0 dose: 0 mGy mGy Contrast Material Contrast Material Type Amount (ml) Isovue 300 0 Estimated blood loss: 10 ml Procedure Complications No complications Procedure Medications Medication Administration Route Dosage 0.9% NaCl I.V. 100 ml/hr Oxygen etCO2 Nasal cannula 4 l/min Versed I.V. 2 mg Versed I.V. 2 mg Fentanyl I.V. 150 mcg Hemodynamics Rest Heart Rate: 102 (bpm) Snapshots Pre Cath Intra NCS Post Cath Vital Signs Time Heart Resp SPO2 etCO2 NIBP (mmHg) Rhythm Pain Sedation Rate (ipm) (%) (mmHg) Status Level (bpm) 12:31:47 102 17 96 22.5 138/87(111) A-Flutter 0 (11) 10(A) , No pain 12:36:05 102 14 98 38.3 85/67(76) A-Flutter 0 (11) 10(A) , No pain 12:40:45 97 17 98 34.6 122/80(111) Paced 0 (11) 9(A) , No pain 12:44:04 98 16 94 30.1 119/85(95) Paced 0 (11) 10(A) , No pain Medications Time Medication Route Dose Verified Delivered Reason Notes Effective ness by by 12:32:08 0.9% NaCl I.V. 100 Edmund Tea used for ml/hr Taya Hagan research laboratory manager 12:32:20 Oxygen etCO2 4 Edmund Tea used for Nasal l/min Taya Hagan procedure cannula RN 12:38:14 Versed I.V. 2 mg Edmund Tea for Taya Hagan sedation RN 12:38:39 Fentanyl I.V. 150 Edmund Zaragozayla for mcg Taya Hagan sedation RN 12:39:29 Versed I.V. 2 mg Edmund Tea for Taya Hagan sedation blocker heated metal forms Log Time Note 12:00:15 Tea Hagan RN sent for patient. Start room use. 12:16:17 Time tracking: Regular hours (M-F 7:00 - 5:00) 12:16:20 Plan of Care:Hemodynamics will remain stable., Cardiac rhythm will remain stable., Comfort level will be maintained., Respiratory function will remain adequate., Patient/ family verbilizes understanding of procedure., Procedure tolerated without complication., Recovers from procedure without complications.. 12:17:38 Quick Combo opened to sterile field. 12:21:27 Patient arrived from Pre/Post Procedure Room to CCL 3. Patient remains on bed/stretcher for procedure. 12:21:30 Signed procedure consent form obtained from patient. 12:21:31 Warm blankets applied, and africa hugger turned on for patient comfort. 12:21:32 Correct patient and procedure confirmed by team. 12:21:33 ECG and BP/O2 sat monitors applied to patient. 12:30:41 Vital chart was started 12:30:54 Baseline sample Acquired. 12:31:12 Rhythm: paced, atrial fibrillation, atrial flutter 12:31:21 Full Disclosure recording started 12:31:33 H&P Date Dictated: 07/04/2019 Within 30 days and on chart., H&P Addendum completed by physician on day of procedure. (MUST COMPLETE FOR ALL OUTPATIENTS). 12:31:34 Pre-procedure instructions explained to patient. 12:31:34 Pre-op teaching completed and patient verbalized understanding. 12:31:36 Family in patients room. 12:31:38 Patient NPO since Breakfast. 12:32:08 0.9% NaCl 100 ml/hr I.V. was administered by Tea Hagan RN; used for procedure; 12:32:16 UNABLE TO USE ANESTHESIA DUE TO PT EATING BREAKFAST, PROCEEDING WITH MODERATE SEDATION PER DR BAIN. 12:32:19 Is the patient allergic to Iodine/contrast media? No. 12:32:20 Oxygen 4 l/min etCO2 Nasal cannula was administered by Tea Hagan RN; used for procedure; 12:32:20 Is patient on blood thinner?Yes 12:32:23 ACC The patient was administered the following blood thiners within the last 24 hours: Xarelto 12:32:25 Patient diabetic? No. 12:32:27 Previous problem with sedation/anesthesia? No ? 12:32:28 Snore? Yes 12:32:30 Sleep apnea? No 12:32:31 Deviated septum? No 12:32:31 Opens mouth fully? Yes 12:32:32 Sticks out tongue? Yes 12:32:34 Airway obstruction? No ? 12:32:35 Dentures? No ? 12:32:41 IV patent on arrival in left hand with 0.9% NaCl at O. 12:32:43 Lab results completed and on chart. 12:33:12 Alarms reviewed by Solitario Wallace 12:33:18 Quick combo pads placed on patients chest and back. 12:37:18 --------ALL STOP TIME OUT------ 12:37:19 Final Timeout: patient, procedure, and site verified with staff and physician. All members of the team are in agreement. 12:37:48 Fire Safety Assessment: C--Open oxygen or nitrous oxide is being used., E--There are other possible contributors. 12:37:50 Physical assessment completed. ASA score P 2 - A patient with mild systemic disease as per Edmund Bain MD. 12:37:54 Sedation plan: IV Moderate Sedation Medication:Versed, Fentanyl 12:38:11 Procedure started. 12:38:14 Versed 2 mg I.V. was administered by Tea Hagan RN; for sedation; 12:38:14 Defibrillator synced and charged to 175 Joules. 12:38:16 Shock delivered. 12:38:39 Fentanyl 150 mcg I.V. was administered by Tea Hagan RN; for sedation; 12:39:23 Unsuccessful cardioversion. 12:39:29 Versed 2 mg I.V. was administered by Tea Hagan RN; for sedation; 12:39:36 Defibrillator synced and charged to 275 Joules. 12:39:38 Shock delivered. 12:39:44 Patient cardioverted to sinus rhythm , paced. 12:40:55 Procedure ended.(Physican Out) 12:41:18 Fluoroscopy time 00.00 minutes. 12:41:19 Fluoroscopy dose: 0 mGy 12:41:19 Flurop Dose total: 0 12:41:20 Dose Area Product ? mGy/cm. 12:41:22 Contrast amount:Isovue 300 0ml. 12:41:31 Post-procedure physical assessment completed. ASA score P 2 - A patient with mild systemic disease as per Edmund Bain MD. 12:41:36 Post procedure rhythm: sinus rhythm , paced 12:41:39 Estimated blood loss: 10 ml 12:41:41 Post procedure instruction explained to patient.Patient verbalizes understanding. 12:41:42 Patient needs reinforcement of post procedure teaching. 12:41:50 Procedure and supply charges have been captured, reviewed, submitted and are correct. 12:41:52 Procedure Complication : No complications 12:47:15 Vital chart was stopped 12:47:16 See physician's report for complete and final results. 12:47:18 Report given to Pre/Post Procedure Room. 12:47:20 Patient transfered to Pre/Post Procedure Room with Stretcher. 12:47:22 Procedure ended. 12:47:22 Full Disclosure recording stopped 12:47:26 End room use (Document Last) Device Usage Item Manufacture Quantity Catalog Hospital Part Current Minimal Lot# / Name Number Charge Number Stock Stock Seri al# Code [employer] DataSearch 1 [id number] Combo Signature Audit [place] Stage Time Signature Unsigned Intra-Procedure 07/10/2019 Cullen Sinha 12:47:43 PM RT(R) Signatures Performing Physician : Signature : Edmund Bain MD Date : Time : Monitor : Cullen Sinha RT Signature : Date : Time : Nurse : eTa Hagan RN Signature : Date : Time : [address] [place] [address]
[~2019-07-10 10:13] MED LIST changes: +PLAVIX75 MG PO
[2019-07-10] MEDS ORDERED: OXYBUTYNIN CHLOR5 M1 PO (10:33)
[2019-07-10] MEDS ORDERED: FOLIC ACID1 MG PO (10:33)
[2019-07-10] MEDS ORDERED: PROTONIX20 MG PO (10:35)
[2019-07-10] MEDS ORDERED: AMIODARONE HCL200 MG PO (10:35)
[2019-07-10] MEDS ORDERED: MULTI-DAY VITAM1 TAB PO (10:36)
[2019-07-10] MEDS ORDERED: XARELTO20 MG PO (10:44)
[2019-07-10 10:47] VITALS: BP 115/71; Ht 177.8 cm; Wt 92.3 kg
[2019-07-10 11:20] LABS: BASOPHILS 0.5 % (0-2); EOSINOPHILS 3.4 % (0-7); HEMATOCRIT 37.6 % (42.0-54.0); HEMOGLOBIN 12.7 g/dL (13.5-17.5); IMMATURE GRANULOCYTES 0.3 % (0-5); LYMPHOCYTES 12.6 % (15-50); MCH 31.5 pg (26.0-34.0); MCHC 33.8 g/dL (31.0-37.0); MCV 93.3 fL (80.0-100.0); MEAN PLATELET VOLUME 10.4 fL (7.4-10.4); MONOCYTES 9.6 % (2-11); NEUTROPHILS 73.6 % (40-80); PLATELET COUNT 223 10x3/uL (130-400); RBC 4.03 10x6/uL (4.20-6.10)
[2019-07-10 11:21] LABS: ANION GAP 13.8 mmol/L (8-16); CALCIUM 8.8 mg/dL (8.5-10.1); CARBON DIOXIDE 27.4 mmol/L (21.0-32.0); CREATININE - SERUM 1.3 mg/dL (0.6-1.3); INR 0.94 (0.85-1.17); POTASSIUM - SERUM 4.2 mmol/L (3.5-5.1); PROTIME 12.1 SECONDS (11.6-15.0)
--- NOTE | 2019-07-10 12:50 | NUR ---
PT RECEIVED VIA STRETCHER FROM PUMP ASSEMBLER POST UNSUCCESFUL CARDIOVERSION. PT AWAKE AND ALERT BUT DROWSY. HR 77, REMAINS IN FLUTTER, BP 113/62, 02 SAT 96 ON 2L/NC. IV PATENT INFUSING VIA ORDERS TO L ARM. UPPER CHEST SLIGHTLY REDDNED FROM PROCEDURE, PT DENIES PAIN OR DISCOMFORT. DR MUELLER AT BEDSIDE, DISCUSSING W AND PT PROCEDURE RESULTS AND PLAN OF CARE. CALL LIGHT IN REACH
--- NOTE | 2019-07-10 13:15 | NUR ---
PT RESTING QUIETLY W EYES CLOSED. HR 75, BP 114/66, 02 SAT 95. CALL LIGHT IN REACH, AT BEDSIDE.
--- NOTE | 2019-07-10 13:35 | NUR ---
PT RESTING COMFORTABLY, VSS. PT DENIES PAIN OR NEEDS AT THIS TIME. AT BEDSIDE, CALL LIGHT IN REACH
--- NOTE | 2019-07-10 13:45 | NUR ---
DISCHARGE INSTRUCTIONS REVIEWED W PT AND , BOTH VERBALIZED UNDERSTANDING. IV REMOVED W CATH INTACT, MONITORS REMOVED AND PT UP TO DRESS FOR DISCHARGE W ASSIT FROM .
--- NOTE | 2019-07-10 14:00 | NUR ---
PT DISCHARGED VIA WC TO WAITING IN PRIVATE VEHICLE. PT HAS ALL BELONGINGS AND DISCHARGE PAPERWORK.
--- NOTE | 2019-07-17 14:31 | OP ---
PATIENT NAME: SONAM BANEGAS MEDICAL RECORD: [id number] :34 LOCATION:D.CAT ADMISSION DATE: SURGEON: SOFI MUELLER MD DATE OF OPERATION: 07/10/2019 PROCEDURES: 1. DC cardioversion. 2. Pacemaker interrogation. INDICATION: Atrial flutter. DESCRIPTION OF PROCEDURE: He received IV conscious sedation. Continuous heart rate, O2 saturation, blood pressure monitoring all undertaken, all of which remained stable. He received shocks at 175 and 275 joules as well as burst pacing with the pacemaker. Each time he would go from his atrial flutter to sinus rhythm, then immediately revert back to the atrial flutter. OVERALL IMPRESSION: Successful DC cardioversion and atrial burst pacing, but the pacemaker from atrial flutter to sinus rhythm; however, immediately would revert back to atrial flutter. Evaluate for ablation. TRANSINT:[id number] Voice Confirmation ID: [id number] DOCUMENT ID: [id number] SOFI MUELLER MD at 1431 CC: [id number] DICTATION DATE: 07/10/19 1242 TOOL SHARPENER: 07/10/19 1248 DEP CLI 07/10/19 [place] [id number] [place] [id number]
== END 2019-07-10 14:00 | disposition home or self-care (01) ==
LOC: D.CATH 10:13
PROVIDERS: ATTEND Internal Medicine Interventional Cardiology
DX: I48.92 Unspecified atrial flutter (principal); Z01.812 Encounter for preprocedural laboratory examination

== ENCOUNTER 2019-11-15 10:26 | Emergency (ER) | payer MEDICARE, OTHER ==
[~2019-11-15] VITALS: Ht 177.8 cm; Wt 88.6 kg
[~2019-11-15 10:26] MED LIST changes: +AMIODARONE HCL200 MG PO; +FOLIC ACID1 MG PO; +MULTI-DAY VITAM1 TAB PO; +OXYBUTYNIN CHLOR5 M1 PO; +PROTONIX20 MG PO; +XARELTO20 MG PO
[2019-11-15 10:29] VITALS: Ht 177.8 cm; Wt 88.6 kg
[2019-11-15] MEDS ORDERED: DDAVP0.1 MG PO (11:02)
[2019-11-15 11:44] LABS: BASOPHILS 0.3 % (0-2); EOSINOPHILS 1.4 % (0-7); HEMATOCRIT 34.4 % (42.0-54.0); HEMOGLOBIN 11.5 g/dL (13.5-17.5); IMMATURE GRANULOCYTES 0.2 % (0-5); LYMPHOCYTES 7.8 % (15-50); MCH 31.9 pg (26.0-34.0); MCHC 33.4 g/dL (31.0-37.0); MCV 95.6 fL (80.0-100.0); MONOCYTES 10.8 % (2-11); NEUTROPHILS 79.5 % (40-80); PLATELET COUNT 247 10x3/uL (130-400); RDW 13.2 % (11.5-14.5); WBC 11.9 10x3/uL (4.8-10.8)
[2019-11-15 11:45] LABS: CALC OSMOLALITY 290 mosm/kg (275-300); CARBON DIOXIDE 30.5 mmol/L (21.0-32.0); CHLORIDE - SERUM 105 mmol/L (98-107); CREATININE - SERUM 1.2 mg/dL (0.6-1.3); GLUCOSE 95 mg/dL (74-106); POTASSIUM - SERUM 4.4 mmol/L (3.5-5.1); SODIUM 143 mmol/L (136-145); UREA NITROGEN 28 mg/dL (7-18); eGFR NON AFRICAN AMERICAN 61 mL/min (90-120)
[2019-11-15 11:59] LABS: ALBUMIN 3.4 g/dL (3.4-5.0); ALKALINE PHOSPHATASE 94 U/L (46-116); ALT (SGPT) 57 U/L (10-68); BILIRUBIN - TOTAL 0.64 mg/dL (0.2-1.3); CKMB 7.6 U/L (0.0-3.6); MAGNESIUM - SERUM 1.9 mg/dL (1.8-2.4); PROTEIN - SERUM 6.3 g/dL (6.4-8.2); TROPONIN-I 0.059 ng/mL (0.000-0.060)
[2019-11-15 12:44] LABS: COLOR YELLOW (YELLOW)
[2019-11-15 12:45] LABS: APPEARANCE HAZY (CLEAR); BILIRUBIN NEGATIVE (NEGATIVE); GLUCOSE NEGATIVE (NEGATIVE); KETONE NEGATIVE (NEGATIVE); NITRITE POSITIVE (NEGATIVE); PROTEIN NEGATIVE (NEGATIVE); SPECIFIC GRAVITY 1.005 (1.005-1.020); UROBILINOGEN NORMAL (NORMAL)
[2019-11-15 12:48] LABS: RED CELLS - URINE NONE SEEN /hpf (0-5)
[2019-11-15 12:49] LABS: BACTERIA MODERATE /hpf (NEGATIVE); EPITHELIAL CELLS NSEEN /hpf (0-5)
[2019-11-15 12:59] VITALS: BP 150/75
[2019-11-15] MEDS ORDERED: MOBIC7.5 MG PO (13:32)
[2019-11-15] MEDS ORDERED: CIPRO250 MG PO (13:32)
[2019-11-15] MEDS ORDERED: SKELAXIN800 MG PO (13:32)
== END 2019-11-15 14:08 | disposition home or self-care (01) ==
LOC: D.ER 10:26
PROVIDERS: Family Medicine
DX: S00.12XA Contusion of left eyelid and periocular area, initial encounter (principal); W19.XXXA Unspecified fall, initial encounter; Y93.01 Activity, walking, marching and hiking; Y92.9 Unspecified place or not applicable; M25.552 Pain in left hip; M25.511 Pain in right shoulder; N39.0 Urinary tract infection, site not specified; Z86.73 Personal history of transient ischemic attack (TIA), and cerebral infarction without residual deficits; I10 Essential (primary) hypertension; Z95.0 Presence of cardiac pacemaker; I48.91 Unspecified atrial fibrillation

== ENCOUNTER → 2020-01-20 13:41 | Outpatient (CLI) | payer MEDICARE, OTHER ==
[2019-11-15 10:29] VITALS: BMI 28.0
[~2020-01-20 13:41] MED LIST changes: +CIPRO250 MG PO; +DDAVP0.1 MG PO; +MOBIC7.5 MG PO; +SKELAXIN800 MG PO
== END | disposition home or self-care (01) ==
LOC: D.RAD 13:41
PROVIDERS: ATTEND Clinical Nurse Specialist Family Health
DX: M25.511 Pain in right shoulder (principal)

== ENCOUNTER 2020-01-31 22:22 | Inpatient (IN) | payer MEDICARE, OTHER ==
[~2020-01-31] VITALS: Ht 177.8 cm; Wt 74.8 kg
[2020-01-31] MEDS ORDERED: CATAPRES0.1 MG PO (23:08)
[2020-01-31] MEDS ORDERED: BETAPACE 80 MG80 MG PO (23:08)
[2020-01-31] MEDS ORDERED: PACERONE100 MG PO (23:09)
[2020-01-31] MEDS ORDERED: BENICAR40 MG PO (23:09)
[2020-01-31] MEDS ORDERED: OXYBUTYNIN CHLOR5 MG PO (23:09)
[2020-01-31 23:14] LABS: HEMATOCRIT 38.4 % (42.0-54.0); HEMOGLOBIN 12.6 g/dL (13.5-17.5); LYMPHOCYTES 12.7 % (15-50); MCHC 32.8 g/dL (31.0-37.0); MCV 94.3 fL (80.0-100.0); MEAN PLATELET VOLUME 10.8 fL (7.4-10.4); NEUTROPHILS 73.3 % (40-80); PLATELET COUNT 220 10x3/uL (130-400); RBC 4.07 10x6/uL (4.20-6.10); RDW 13.3 % (11.5-14.5); WBC 10.1 10x3/uL (4.8-10.8)
[2020-01-31 23:16] LABS: ANION GAP 10.9 mmol/L (8-16); CARBON DIOXIDE 28.2 mmol/L (21.0-32.0); CREATININE - SERUM 1.8 mg/dL (0.6-1.3); POTASSIUM - SERUM 4.1 mmol/L (3.5-5.1)
[2020-01-31 23:23] LABS: BILIRUBIN NEGATIVE (NEGATIVE); GLUCOSE NEGATIVE (NEGATIVE); KETONE NEGATIVE (NEGATIVE); NITRITE NEGATIVE (NEGATIVE); SPECIFIC GRAVITY 1.015 (1.005-1.020); UROBILINOGEN NORMAL (NORMAL)
[2020-01-31 23:31] LABS: ALBUMIN 3.3 g/dL (3.4-5.0); BILIRUBIN - TOTAL 0.42 mg/dL (0.2-1.3); MAGNESIUM - SERUM 1.7 mg/dL (1.8-2.4); PROTEIN - SERUM 6.3 g/dL (6.4-8.2); THYROID STIMULATING HORMONE 0.9 uIU/mL (0.36-3.74); TROPONIN-I 0.024 ng/mL (0.000-0.060)
[2020-02-01] VITALS (10 sets, daily range): BP systolic 122–151; BP diastolic 67–84; Ht 177.8 cm; Wt 74.8 kg
--- NOTE | 2020-02-01 07:15 | NUR ---
RECEIVED PT IN BED EYES CLOSED RESP UNLABORED SKIN W/D COLOR WNL NAD NOTED
[2020-02-01] MEDS ORDERED: AMIODARONE HCL200 MG (07:48)
[2020-02-01] MEDS ORDERED: MECLIZINE HCL25 MG PO (07:50)
--- NOTE | 2020-02-01 19:45 | NUR ---
REPORT RECIEVED AND INITIAL ROUNDS COMPLETED. PT RESTING IN BED WITH NO DISTRESS. IVF INFUSING. SR WITH 1ST DEGREE BLOCK PER TELEMETRY. NONLABORED RESPIRATIONS ON ROOM AIR. PT TEACHING ON WHY ORTHOSTATIC BP'S ARE BEING MONITORED. CPOC.
--- NOTE | 2020-02-01 23:41 | NUR ---
BEDTIME MEDS GIVEN. ASSISTED PT TO TRY AND CALL HIS . CALL LIGHT IN REACH. USING URINAL. CPOC.
[2020-02-02] VITALS (10 sets, daily range): BP systolic 117–149; BP diastolic 64–95
--- NOTE | 2020-02-02 04:00 | NUR ---
PT HAS BEEN USING URINAL ALL NIGHT. CALLS NOW FOR ASSIST TO CHANGE HIS BRIEF. NOTED CHUX IS DAMP AND SO IS HIS GOWN. CARE PROVIDED. NEW LINENS/GOWN/BRIEF. PULLED UP AND REPOSITIONED. IVF INFUSING. CPOC.
[2020-02-02 04:53] LABS: CALCIUM 8.9 mg/dL (8.5-10.1); CARBON DIOXIDE 28.6 mmol/L (21.0-32.0); CREATININE - SERUM 1.5 mg/dL (0.6-1.3); MAGNESIUM - SERUM 1.5 mg/dL (1.8-2.4); POTASSIUM - SERUM 3.6 mmol/L (3.5-5.1)
--- NOTE | 2020-02-02 06:56 | NUR ---
REPORT TO ONCOMING NURSE. PT HAS RESTED THROUGH THE NIGHT. NO DISTRESS. CPOC.
--- NOTE | 2020-02-02 07:20 | NUR ---
RECIEVE REPORT. ALERT AND ORIENTED X4. DR. BELLA AT BEDSIDE. ASSIST UP TO RESTROOM X2 PEOPLE ASSIST. GAIT UNSTEADY. SINUS RYTHM 1st DEGREE BLOCK. DENIES ANY OTHER NEEDS. CONTINUE PLAN OF CARE AND SAFETY PRECAUTIONS.
--- NOTE | 2020-02-02 07:30 | HP ---
PATIENT: SONAM BANEGAS MEDICAL RECORD: [id number] ACCOUNT: [id number] LOCATION:[address] : 34 ADMISSION DATE: 02/01/20 PCP: STEPHANIE DIMAS MD HISTORY AND PHYSICAL EXAMINATION REASON FOR ADMISSION: Generalized weakness and fall. 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 He states that he has some generalized weakness and balance difficulties moderately since a fall in November when he tore his right supraspinatus tendon. He has been noticing for the last 2 weeks when he would sit up out of bed, his head would feel like it was burning and lightheaded and dizzy and then he could gradually get up. 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 When he got to the bathroom with his walker, he says his legs got weak, he was very lightheaded and almost fell, in fact did fall against the wall without loss of consciousness. He says his legs just felt significantly weak, he could not really walk unassisted. His had public health worker arrived and he was brought to the ED. He denies any new headache, visual changes of new onset or slurred speech. He said his feet feel numb for the last several months. On presentation to the ED, his saturation was 96% and he had no neuro deficit except for marked weakness of the lower extremities. He has a history of remote right occipital CVA several years ago, no symptoms now compatible with that. 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 PAST SURGICAL HISTORY: He has had open prostatectomy, cataract surgery of both eyes, appendectomy, deviated septum repair, pacemaker placement, PTCA. FAMILY HISTORY: Parents are . Dad of old age at 92. Mother of a stroke at 65. 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 . Quit smoking years ago. Does not drink alcohol heavily. ALLERGIES: None. HOME MEDICATIONS: L-methylfolate 1 cap b.i.d., amlodipine 10 mg daily, losartan 100/25 one daily, desmopressin 0.1 mg p.o. b.i.d., famotidine 20 mg b.i.d., pantoprazole 1 tab daily, clonidine 0.1 p.r.n. for elevated blood pressure. REVIEW OF SYSTEMS: CONSTITUTIONAL: He has been fatigued for the last several weeks, worse the last several days. Denied fever or cough. HEENT: No recent visual change, but does have chronic deficit in his left visual field. No recent sinus congestion or sore throat. He has chronic hearing difficulty. RESPIRATORY: No severe cough heard. CARDIAC: No palpitations, PND, orthopnea, claudication. HISTORY AND PHYSICAL [id number] SONAM BANEGAS GASTROINTESTINAL: No nausea, vomiting, change in stools or blood per rectum. GENITOURINARY: Has chronic urinary incontinence. MUSCULOSKELETAL: Has arthritis in his hips and knees. NEUROLOGIC: Denies headache, history of seizure. He does complain of numbness in the bottoms of his feet that is becoming more prominent. PSYCHIATRIC: Denies depressed mood. PHYSICAL EXAMINATION: VITAL SIGNS: Temperature 98.2, pulse 67 and regular, respirations are 18, blood pressure 125/70 and O2 sat 96%. GENERAL: The patient is alert and oriented. HEENT: Eyes are clear with lens implants, decrease visual field in the left noted. Oropharynx unremarkable. NECK: Supple, without bruits. CHEST: Clear. HEART: Regular rate. ABDOMEN: Soft, nontender, no organomegaly. GENITOURINARY: Deferred. EXTREMITIES: No CC&E. NEUROLOGIC: Oriented to person, place, and time. Cranial nerves are intact. His motor strength is decreased in both lower extremities and the quadriceps He has good plantar flexion. Sensation; decreased sensation to touch in bottoms of both feet. Reflexes 1+ throughout. IMAGING AND LABORATORY DATA: CT of the brain shows old right occipital CVA. Lab shows normal urinalysis. White count 10,000, H&H of 12.6 and 38.4, BUN and creatinine are 43 and 1.8, his normal is 40 and 1.4, magnesium is 1.7. ProBNP is 457. Chest x-ray, no acute cardiopulmonary disease. Cardiac pacing is noted in the right atrium and right ventricle. ASSESSMENT: Near syncope, probably due to orthostatic hypotension, [id number] renal insufficiency, hypomagnesemia, history of AFib flutter, sick sinus syndrome, prostate cancer, remote cerebrovascular accident. PLAN: We will hold antihypertensives. Monitor blood pressure. We will hydrate cautiously. Cardiac monitoring. PT to evaluate. Further workup pending clinical course. TRANSINT:[id number] Voice Confirmation ID: [id number] DOCUMENT ID: [id number] ASHA BELLA MD at 0730 CC: [id number] DICTATION DATE: 02/01/20 0940 HEEL CEMENTER: 02/01/20 1040 ADM [place] [id number] [place] [id number]
--- NOTE | 2020-02-02 17:11 | NUR ---
ALERT AND ORIENTED X4. UNABLE TO COMPLETE STANDING ORTHOSTATIC BP DUE TO TREMORS AND DIZZINESS. SINUS RYTHM 61 WITH 1st DEGREE BLOCKE. CONTINUE PLAN OF CARE AND SAFETY PRECAUTIONS.
--- NOTE | 2020-02-02 19:45 | NUR ---
REPORT RECIEVED AND INITIAL ROUNDS COMPLETED. PT TRYING TO GET OFF HIS WET BRIEF. ASSISTED WITH PERSONAL CARE, PUTTING ON NEW BRIEF, CLEAN GOWN AND ALSO CHANGED ALL LINENS ON HIS BED. PT TALKATIVE, ALERT AND SOMETIMES FORGETUFL, THEN WILL CORRECT HIMSELF IF HE REALIZES HE IS REPEATING HIMSELF. SALINE LOCK TO LEFT A/C. NONLABORED RESPIRATIONS ON ROOM AIR. CALL LIGHT IN REACH.
--- NOTE | 2020-02-02 22:42 | NUR ---
BEDTIME MEDS HAVE BEEN GIVEN. PT RESTING WITH NO DISTRESS. DID GIVE A XANAX TO HELP HIM SLEEP BETTER TONIGHT. PT STATES HE HAS NOT SLEPT WELL BEING IN THE HOSPITAL. ORTHO BP'S DONE. GAIT IS VERY UNSTEADY EVEN WITH USE OF WALKER. CALL LIGHT IN REACH. FALL PRECAUTIONS.
[2020-02-03] VITALS (11 sets, daily range): BP systolic 105–137; BP diastolic 55–86
[2020-02-03 05:19] LABS: T4 THYROXIN - FREE 1.55 ng/dL (0.76-1.46); THYROID STIMULATING HORMONE 0.59 uIU/mL (0.36-3.74)
--- NOTE | 2020-02-03 07:53 | NUR ---
RECIEVE REPORT. ALERT AND ORIENTED X4. SITTING UP IN CHAIR. DENIES ANY NEEDS. CONTINUE PLAN OF CARE AND SAFETY PRECAUTIONS.
--- NOTE | 2020-02-03 12:30 | MORECARE ---
CASE MANAGEMENT DISCHARGE SUMMARY PATIENT: MOODY BANEGAS UNIT: [id number] ADM DATE: 02/01/20 AGE: 84 : 34 SEX: M ROOM/BED: D.2116 AUTHOR: NOLA EDWARDS PHYSICIAN: REFERRING PHYSICIAN: STEPHANIE DIMAS MD DATE OF SERVICE: 02/03/20 Discharge Plan Patient Name: MOODY BANEGAS Facility: [facility]:[place] : 1935 Planned Disposition: Custodial Facility Anticipated Discharge Date: 02/04/20 Discharge Date: Expected LOS: 3 Initial Reviewer: [email or web address] Initial Review Date: 02/03/2020 Generated: 02/03/20 1:29 pm DCP- Discharge Planning Updated by [email or web address]: Génesis Grace on 02/01/20 2:[address] BANSAL EXPLAINED ORIGINAL PROVIDED. COPY PLACED ON CHART. DCPIA - Discharge Planning Initial Assessment Updated by [email or web address]: Moody Toure on 02/03/20 12:30 pm * Is the patient Alert and Oriented? Yes * How many steps to enter\exit or inside your home? NONE * PCP DR. DIMAS * Pharmacy [facility] * Preadmission Environment Home with Family * ADLs Independent * Equipment None * Other Equipment NO MEDICAL EQUIPMENT PROVIDER PREFERENCE * List name and contact numbers for known caregivers / representatives who currently or will assist patient after discharge: GREYSON BANEGAS, SPOUSE, * Verbal permission to speak to the caregivers and representatives has been obtained from the patient. N/A * Community resources currently utilized None * Please name any agencies selected above. NONE * Additional services required to return to the preadmission environment? No * Can the patient safely return to the preadmission environment? Yes * Has this patient been hospitalized within the prior 30 days at any hospital? No External Providers External Provider: [facility] / [facility] Next Contact Date: 02/03/2020 Service Request Date: Service Type: Resolution: Reviewer: Comments: Coverage Notice Reviewer: [email or web address] - Génesis Grace Notice Issued Date-Time: 02/01/2020 15:10 Notice Type: Medicare Outpatient Observation Notice Notice Delivered To: Patient Relationship to Patient: Mixing Operator Name: Delivery Method: HAND - Hand Delivered Jessica Days: Prior Verbal Notification: Yes Recipient Understood Notice: Yes Recipient Signature: Med Rec Note Co-signed by Attending: Coverage Notice Comment: Reviewer: LUDMILA Toure Notice Issued Date-Time: 02/03/2020 11:40 Notice Type: IM Discharge Notice Notice Delivered To: Patient Relationship to Patient: Mixing Operator Name: Delivery Method: HAND - Hand Delivered Jessica Days: Prior Verbal Notification: Recipient Understood Notice: Yes Recipient Signature: Yes Med Rec Note Co-signed by Attending: Coverage Notice Comment: Reviewer: LUDMILA Toure Notice Issued Date-Time: 02/03/2020 11:40 Notice Type: Patient Choice Letter Notice Delivered To: Patient Relationship to Patient: Mixing Operator Name: Delivery Method: HAND - Hand Delivered Jessica Days: Prior Verbal Notification: Recipient Understood Notice: Yes Recipient Signature: Yes Med Rec Note Co-signed by Attending: Coverage Notice Comment: REEMA Patient Name: MOODY BANEGAS Page [id number] at 1230 All edits/amendments must be made on the electronic document DICTATION DATE: 02/03/20 1229 GLOVE CLEANER: [email or web address] 02/03/20 1229 RPT#: [id number] DC DATE: STATUS: ADM IN [facility] [address] [place] [address] END OF REPORT
--- NOTE | 2020-02-03 13:09 | MORECARE ---
CASE MANAGEMENT DISCHARGE SUMMARY PATIENT: MOODY BANEGAS UNIT: [id number] ADM DATE: 02/01/20 AGE: 84 : 34 SEX: M ROOM/BED: D.2116 AUTHOR: GRACE,DOC PHYSICIAN: REFERRING PHYSICIAN: STEPHANIE DIMAS MD DATE OF SERVICE: 02/03/20 Discharge Plan Patient Name: MOODY BANEGAS Facility: [facility]:[place] : 1935 Planned Disposition: Assisted Facility Anticipated Discharge Date: 02/04/20 Discharge Date: Expected LOS: 3 Initial Reviewer: [id number] Initial Review Date: 02/03/2020 Generated: 02/03/20 2:08 pm Comments DCP- Discharge Planning Updated by [id number]: Modoy Toure on 02/03/20 12:[address] Patient Name: MOODY BANEGAS Admission Status: ER Accout number: [id number] Admission Date: 02-01-2020 : 1935 Admission Diagnosis: Attending: STEPHANIE DIMAS Current LOS: 2 Anticipated DC Date: 02-04-2020 Planned Disposition: Assisted Facility Primary Insurance: MEDICARE A & B PLANNED EXTERNAL PROVIDER: [facility], MEDICARE REHAB BED Discharge Planning Comments: CM RECEIVED ORDERS FOR INPATIENT AND FCI REHAB AT [facility]. CM CALLED [facility] INFORMATION SYSTEMS CONSULTANT, AMARA AHUMADA, , WHO ADVISED THAT THEY ARE NOT ACCEPTING PT'S FROM ANY FACLITY THAT HAS ANY POSITIVE COV19 PATIENTS IN THE FACILITY; [facility] FITS THIS CRITERIA. CM MET WITH PT IN ROOM TO DISCUSS DISCHARGE PLANNING AND NEEDS. PT REPORTS LIVING AT HOME INDEPENDENTLY WITH HIS SPOUSE. PT HAS NO MEDICAL EQUIPMENT AND NO OUTSIDE SERVICES ASSISTING IN THE HOME. CM DISCUSSED AVAILABILITY OF HOME HEALTH, REHAB SERVICES AND MEDICAL EQUIPMENT. PT WANTS REHAB SERVICES. IF [facility] WILL NOT ACCEPT, PT REQUESTS REHAB AT [facility], NOT INPATIENT REHAB AT [place] OR [facility]. PT REPORTS HE UNDERSTANDS THAT HE MAY NOT HAVE VISITORS WHILE IN REHAB AND STATES HIS WILL PICK HIM UP FOR DISCHARGE HOME. CHOICE SIGNED FOR [facility]. IMPORTANT MESSAGE FROM MEDICARE PROVIDED AND EXPLAINED. CM FAXED REFERRAL INFORMATION TO [facility] AT [phone]. CM NOTIFIED [facility] AT [phone], OF REFERRAL AND PLANNED DISCHARGE TO REHAB TOMORROW. CM FAXED REFERRAL TO DANIELA AT [phone]. CM WAITING ADMISSION DETERMINATION FROM [facility]. Office Professional: Moody Toure DCP- Discharge Planning Updated by [id number]: Génesis Grace on 02/01/20 2:[address] BANSAL EXPLAINED ORIGINAL PROVIDED. COPY PLACED ON CHART. DCPIA - Discharge Planning Initial Assessment Updated by [id number]: Moody Toure on 02/03/20 12:30 pm * Is the patient Alert and Oriented? Yes * How many steps to enter\exit or inside your home? NONE * PCP DR. DIMAS * [facility] * Preadmission Environment Home with Family * ADLs Independent * Equipment None * Other Equipment NO MEDICAL EQUIPMENT PROVIDER PREFERENCE * List name and contact numbers for known caregivers / representatives who currently or will assist patient after discharge: GREYSON BANEGAS, SPOUSE, * Verbal permission to speak to the caregivers and representatives has been obtained from the patient. N/A * Community resources currently utilized None * Please name any agencies selected above. NONE * Additional services required to return to the preadmission environment? No * Can the patient safely return to the preadmission environment? Yes * Has this patient been hospitalized within the prior 30 days at any hospital? No Coverage Notice Reviewer: [id number] - Génesis Grace Notice Issued Date-Time: 02/01/2020 15:10 Notice Type: Medicare Outpatient Observation Notice Notice Delivered To: Patient Relationship to Patient: Drill Runner Name: Delivery Method: HAND - Hand Delivered Jessica Days: Prior Verbal Notification: Yes Recipient Understood Notice: Yes Recipient Signature: Med Rec Note Co-signed by Attending: Coverage Notice Comment: Reviewer: [id number] Daniel Toure Notice Issued Date-Time: 02/03/2020 11:40 Notice Type: IM Discharge Notice Notice Delivered To: Patient Relationship to Patient: Drill Runner Name: Delivery Method: HAND - Hand Delivered Jessica Days: Prior Verbal Notification: Recipient Understood Notice: Yes Recipient Signature: Yes Med Rec Note Co-signed by Attending: Coverage Notice Comment: Reviewer: [id number] Daniel Toure Notice Issued Date-Time: 02/03/2020 11:40 Notice Type: Patient Choice Letter Notice Delivered To: Patient Relationship to Patient: Drill Runner Name: Delivery Method: HAND - Hand Delivered Jessica Days: Prior Verbal Notification: Recipient Understood Notice: Yes Recipient Signature: Yes Med Rec Note Co-signed by Attending: Coverage Notice Comment: REEMA Bellamy DP export: 02/03/20 11:30 a Patient Name: MOODY BANEGAS Page [phone] at 1309 All edits/amendments must be made on the electronic document DICTATION DATE: 02/03/201307 CONSTRUCTION REP: [email or web address] 02/03/20 1308 RPT#: [id number] DC DATE: STATUS: ADM IN [facility] [address] [place] [address] END OF REPORT
--- NOTE | 2020-02-03 14:46 | NUR ---
OT NOTE: PT COMPLETED SIT TO STAND WITH CGA. PT COMPLETED ADL MOB WITH RW WITH CGA. PT COMPLETED TOILETING AN HYGIENE TASKS WITH SETUP. PT REQUIRED MIN A FOR UNDERGARMENT. PT EDUCATED ON USE OF CALL LIGHT. [phone] THANK YOU,LULY MCDANIEL
--- NOTE | 2020-02-03 14:55 | NUR ---
ALERT AND ORIENTED X4. ASSIST UP TO SHOWER CHAIR. SHOWER COMPLETE AND LINENS CHANGED. DENIES ANY NEEDS. CONTINUE PLAN OF CARE AND SAFETY PRECAUTIONS.
--- NOTE | 2020-02-03 19:26 | NUR ---
RECEIVED BEDSIDE REPORT, PATIENT IS ALERT AND ORIENTED RESTING COMFORTABLY IN BED. RESPIRATIONS ARE EVEN AND UNLABORED. NO S/S OF DISTRESS. NO C/O PAIN. CALL LIGHT WITHIN REACH. WILL CPOC.
[2020-02-04 00:01] VITALS: BP 168/78
[2020-02-04 00:48] VITALS: BP 168/81
[2020-02-04 04:43] LABS: BASOPHILS 0.9 % (0-2); EOSINOPHILS 7.2 % (0-7); HEMATOCRIT 41.3 % (42.0-54.0); HEMOGLOBIN 13.3 g/dL (13.5-17.5); IMMATURE GRANULOCYTES 0.1 % (0-5); LYMPHOCYTES 20.2 % (15-50); MCH 30.5 pg (26.0-34.0); MCHC 32.2 g/dL (31.0-37.0); MCV 94.7 fL (80.0-100.0); MEAN PLATELET VOLUME 11.6 fL (7.4-10.4); MONOCYTES 12.7 % (2-11); NEUTROPHILS 58.9 % (40-80); PLATELET COUNT 238 10x3/uL (130-400); RBC 4.36 10x6/uL (4.20-6.10); RDW 12.9 % (11.5-14.5); WBC 8.2 10x3/uL (4.8-10.8)
[2020-02-04 05:23] VITALS: BP 107/71; BP 134/76
[2020-02-04 05:24] VITALS: BP 142/73
--- NOTE | 2020-02-04 05:26 | NUR ---
ORTHOSTATIC BP LYING BP 107/71 HR 83 O2 92% RA SITTING BP 134/76 HR 71 O2 96% RA STANDING BP 142/73 HR 68 O2 97% RA
[2020-02-04 05:33] LABS: ALBUMIN 3.1 g/dL (3.4-5.0); ANION GAP 10.8 mmol/L (8-16); BILIRUBIN - TOTAL 0.44 mg/dL (0.2-1.3); CALCIUM 8.4 mg/dL (8.5-10.1); CARBON DIOXIDE 30.1 mmol/L (21.0-32.0); CREATININE - SERUM 1.6 mg/dL (0.6-1.3); POTASSIUM - SERUM 3.9 mmol/L (3.5-5.1); PROTEIN - SERUM 5.7 g/dL (6.4-8.2)
[2020-02-04] MEDS ORDERED: COZAAR50 MG PO (07:16)
[2020-02-04] MEDS ORDERED: BAYER CHEWABLE81 MG PO (07:19)
[2020-02-04 07:50] VITALS: BP 134/67
--- NOTE | 2020-02-04 09:02 | MORECARE ---
CASE MANAGEMENT DISCHARGE SUMMARY PATIENT: MOODY BANEGAS UNIT: [id number] ADM DATE: 02/01/20 AGE: 84 : 34 SEX: M ROOM/BED: D.2116 AUTHOR: GRACE,DOC PHYSICIAN: REFERRING PHYSICIAN: STEPHANIE DIMAS MD DATE OF SERVICE: 02/04/20 Discharge Plan Patient Name: MOODY BANEGAS Facility: [facility]:[place] : 1935 Planned Disposition: Group Home Facility Anticipated Discharge Date: 02/04/20 Discharge Date: Expected LOS: 3 Initial Reviewer: [id number] Initial Review Date: 02/03/2020 Generated: 02/04/20 10:02 am Comments DCP- Discharge Planning Updated by [email or web address]: Moody Toure on 02/04/20 7:[address] Patient Name: MOODY BANEGAS Encounter No: [id number] : 1935 Primary Insurance: MEDICARE A & B Anticipated DC Date: 02-04-2020 Planned Disposition: Group Home Facility External Planned Provider: [facility], MEDICARE REHAB BED Discharge Planning Comments: CM RECEIVED DISCHARGE ORDERS, [facility] CM FAXED DISCHARGE INFORMATION TO [facility] AT [phone]. CM NOTIFIED [facility] OF DISCHARGE AT [phone], [facility] WILL ACCEPT FOR REHAB TODAY. CM FAXED DISCHARGE INFORMATION TO [facility] AT [phone] AND TO [facility] AT [phone]. NURSE REPORT TO BE CALLED TO [facility] AT [phone] PROVID[facility] VAN TRANSPORTATION. Hospitality Coordinator: Moody Toure DCP- Discharge Planning Updated by [id number]: Moody Toure on 02/03/20 12:[address] Patient Name: MOODY BANEGAS Admission Status: ER Accout number: [id number] Admission Date: 02-01-2020 : 1935 Admission Diagnosis: Attending: STEPHANIE DIMAS Current LOS: 2 Anticipated DC Date: 02-04-2020 Planned Disposition: Group Home Facility Primary Insurance: MEDICARE A & B PLANNED EXTERNAL PROVIDER: [facility], MEDICARE REHAB BED Discharge Planning Comments: CM RECEIVED ORDERS FOR INPATIENT AND HALFWAY REHAB AT [facility]. CM CALLED [facility] DRIER TRANSFER CAR OPERATOR, AMARA AHUMADA, , WHO ADVISED THAT THEY ARE NOT ACCEPTING PT'S FROM ANY FACLITY THAT HAS ANY POSITIVE COV19 PATIENTS IN THE FACILITY; [facility] FITS THIS CRITERIA. CM MET WITH PT IN ROOM TO DISCUSS DISCHARGE PLANNING AND NEEDS. PT REPORTS LIVING AT HOME INDEPENDENTLY WITH HIS SPOUSE. PT HAS NO MEDICAL EQUIPMENT AND NO OUTSIDE SERVICES ASSISTING IN THE HOME. CM DISCUSSED AVAILABILITY OF HOME HEALTH, REHAB SERVICES AND MEDICAL EQUIPMENT. PT WANTS REHAB SERVICES. IF [facility] WILL NOT ACCEPT, PT REQUESTS REHAB AT [facility], NOT INPATIENT REHAB AT [facility] OR [facility]. PT REPORTS HE UNDERSTANDS THAT HE MAY NOT HAVE VISITORS WHILE IN REHAB AND STATES HIS WILL PICK HIM UP FOR DISCHARGE HOME. CHOICE SIGNED FOR [facility]. IMPORTANT MESSAGE FROM MEDICARE PROVIDED AND EXPLAINED. CM FAXED REFERRAL INFORMATION TO [facility] AT [phone]. CM NOTIFIED [facility] OF [facility] AT [phone], OF REFERRAL AND PLANNED DISCHARGE TO REHAB TOMORROW. CM FAXED REFERRAL TO [facility] AT [phone]. CM WAITING ADMISSION DETERMINATION FROM [facility]. Hospitality Coordinator: Moody Toure DCP- Discharge Planning Updated by [id number]: Génesis Grace on 02/01/20 2:[address] BANSAL EXPLAINED ORIGINAL PROVIDED. COPY PLACED ON CHART. DCPIA - Discharge Planning Initial Assessment Updated by [id number]: Moody Toure on 02/03/20 12:30 pm * Is the patient Alert and Oriented? Yes * How many steps to enter\exit or inside your home? NONE * PCP DR. DIMAS * Pharmacy [facility] * Preadmission Environment Home with Family * ADLs Independent * Equipment None * Other Equipment NO MEDICAL EQUIPMENT PROVIDER PREFERENCE * List name and contact numbers for known caregivers / representatives who currently or will assist patient after discharge: GREYSON BANEGAS, SPOUSE, * Verbal permission to speak to the caregivers and representatives has been obtained from the patient. N/A * Community resources currently utilized None * Please name any agencies selected above. NONE * Additional services required to return to the preadmission environment? No * Can the patient safely return to the preadmission environment? Yes * Has this patient been hospitalized within the prior 30 days at any hospital? No Coverage Notice Reviewer: [id number] Daniel Grace Notice Issued Date-Time: 02/01/2020 15:10 Notice Type: Medicare Outpatient Observation Notice Notice Delivered To: Patient Relationship to Patient: Employment Evaluator/Case Manager Name: Delivery Method: HAND - Hand Delivered Jessica Days: Prior Verbal Notification: Yes Recipient Understood Notice: Yes Recipient Signature: Med Rec Note Co-signed by Attending: Coverage Notice Comment: Reviewer: [id number] Toure Notice Issued Date-Time: 02/03/2020 11:40 Notice Type: IM Discharge Notice Notice Delivered To: Patient Relationship to Patient: Employment Evaluator/Case Manager Name: Delivery Method: HAND - Hand Delivered Jessica Days: Prior Verbal Notification: Recipient Understood Notice: Yes Recipient Signature: Yes Med Rec Note Co-signed by Attending: Coverage Notice Comment: Reviewer: LUDMILA Toure Notice Issued Date-Time: 02/03/2020 11:40 Notice Type: Patient Choice Letter Notice Delivered To: Patient Relationship to Patient: Employment Evaluator/Case Manager Name: Delivery Method: HAND - Hand Delivered Jessica Days: Prior Verbal Notification: Recipient Understood Notice: Yes Recipient Signature: Yes Med Rec Note Co-signed by Attending: Coverage Notice Comment: REEMA Bellamy DP export: 02/03/20 12:09 p Patient Name: MOODY BANEGAS Page 12711 at 0902 All edits/amendments must be made on the electronic document DICTATION DATE: 02/04/20901 STAGE SETTING PAINTER APPRENTICE: VIKKI 02/04/20901 RPT#: [id number] DC DATE: STATUS: ADM IN [facility] [address] [place] [address] END OF REPORT
--- NOTE | 2020-02-04 09:55 | MORECARE ---
CASE MANAGEMENT DISCHARGE SUMMARY PATIENT: MOODY BANEGAS UNIT: [id number] ADM DATE: 02/01/20 AGE: 84 : 34 SEX: M ROOM/BED: D.2116 AUTHOR: GRACE,DOC PHYSICIAN: REFERRING PHYSICIAN: STEPHANIE DIMAS MD DATE OF SERVICE: 02/04/20 Discharge Plan Patient Name: MOODY BANEGAS Facility: [facility]:[place] : 1935 Planned Disposition: Longterm Facility Anticipated Discharge Date: 02/04/20 Discharge Date: Expected LOS: 3 Initial Reviewer: [email or web address] Initial Review Date: 02/03/2020 Generated: 02/04/20 10:54 am Comments DCP- Discharge Planning Updated by [email or web address]: Moody Toure on 02/04/20 7:[address] Patient Name: MOODY BANEGAS Encounter No: [id number] : 1935 Primary Insurance: MEDICARE A & B Anticipated DC Date: 02-04-2020 Planned Disposition: Longterm Facility External Planned Provider: [facility], MEDICARE REHAB BED Discharge Planning Comments: CM RECEIVED DISCHARGE ORDERS, [facility] CM FAXED DISCHARGE INFORMATION TO [facility] AT [phone]. CM NOTIFIED [facility] OF NURSING CONSULTANTS OF DISCHARGE AT [phone], [facility] WILL ACCEPT FOR REHAB TODAY. CM FAXED DISCHARGE INFORMATION TO [facility] AT [phone] AND TO [facility] AT [phone]. NURSE REPORT TO BE CALLED TO [facility] AT [phone] TO PROVIDE VAN TRANSPORTATION. Diesel Tractor Operator: Moody Toure DCP- Discharge Planning Updated by [id number]: Moody Toure on 02/03/20 12:[address] Patient Name: MOODY BANEGAS Admission Status: ER Accout number: [id number] Admission Date: 02-01-2020 : 1935 Admission Diagnosis: Attending: STEPHANIE DIMAS Current LOS: 2 Anticipated DC Date: 02-04-2020 Planned Disposition: Longterm Facility Primary Insurance: MEDICARE A & B PLANNED EXTERNAL PROVIDER: [facility], MEDICARE REHAB BED Discharge Planning Comments: CM RECEIVED ORDERS FOR INPATIENT AND LONG-TERM REHAB AT [facility]. CM CALLED [facility] JEWELRY DESIGNER, AMARA AHUMADA, , WHO ADVISED THAT THEY ARE NOT ACCEPTING PT'S FROM ANY FACLITY THAT HAS ANY POSITIVE COV19 PATIENTS IN THE FACILITY; [place] FITS THIS CRITERIA. CM MET WITH PT IN ROOM TO DISCUSS DISCHARGE PLANNING AND NEEDS. PT REPORTS LIVING AT HOME INDEPENDENTLY WITH HIS SPOUSE. PT HAS NO MEDICAL EQUIPMENT AND NO OUTSIDE SERVICES ASSISTING IN THE HOME. CM DISCUSSED AVAILABILITY OF HOME HEALTH, REHAB SERVICES AND MEDICAL EQUIPMENT. PT WANTS REHAB SERVICES. IF [facility] WILL NOT ACCEPT, PT REQUESTS REHAB AT [facility], NOT INPATIENT REHAB AT [place] OR [facility]. PT REPORTS HE UNDERSTANDS THAT HE MAY NOT HAVE VISITORS WHILE IN REHAB AND STATES HIS WILL PICK HIM UP FOR DISCHARGE HOME. CHOICE SIGNED FOR [facility]. IMPORTANT MESSAGE FROM MEDICARE PROVIDED AND EXPLAINED. CM FAXED REFERRAL INFORMATION TO [facility] AT [phone]. CM NOTIFIED [facility]ANI[facility]A OF [facility] AT [phone], OF REFERRAL AND PLANNED DISCHARGE TO REHAB TOMORROW. CM FAXED REFERRAL TO [facility] AT [phone]. CM WAITING ADMISSION DETERMINATION FROM [facility]. Diesel Tractor Operator: Moody Toure DCP- Discharge Planning Updated by [id number]: Génesis Grace on 02/01/20 2:[address] BANSAL EXPLAINED ORIGINAL PROVIDED. COPY PLACED ON CHART. DCPIA - Discharge Planning Initial Assessment Updated by [id number]: Moody Toure on 02/03/20 12:30 pm * Is the patient Alert and Oriented? Yes * How many steps to enter\exit or inside your home? NONE * PCP DR. DIMAS * Pharmacy [facility] * Preadmission Environment Home with Family * ADLs Independent * Equipment None * Other Equipment NO MEDICAL EQUIPMENT PROVIDER PREFERENCE * List name and contact numbers for known caregivers / representatives who currently or will assist patient after discharge: GREYSON BANEGAS, SPOUSE, * Verbal permission to speak to the caregivers and representatives has been obtained from the patient. N/A * Community resources currently utilized None * Please name any agencies selected above. NONE * Additional services required to return to the preadmission environment? No * Can the patient safely return to the preadmission environment? Yes * Has this patient been hospitalized within the prior 30 days at any hospital? No Coverage Notice Reviewer: [id number] Daniel Grace Notice Issued Date-Time: 02/01/2020 15:10 Notice Type: Medicare Outpatient Observation Notice Notice Delivered To: Patient Relationship to Patient: Computerized Mill Recorder Name: Delivery Method: HAND - Hand Delivered Jessica Days: Prior Verbal Notification: Yes Recipient Understood Notice: Yes Recipient Signature: Med Rec Note Co-signed by Attending: Coverage Notice Comment: Reviewer: [id number] Toure Notice Issued Date-Time: 02/03/2020 11:40 Notice Type: IM Discharge Notice Notice Delivered To: Patient Relationship to Patient: Computerized Mill Recorder Name: Delivery Method: HAND - Hand Delivered Jessica Days: Prior Verbal Notification: Recipient Understood Notice: Yes Recipient Signature: Yes Med Rec Note Co-signed by Attending: Coverage Notice Comment: Reviewer: [id number] Toure Notice Issued Date-Time: 02/03/2020 11:40 Notice Type: Patient Choice Letter Notice Delivered To: Patient Relationship to Patient: Computerized Mill Recorder Name: Delivery Method: HAND - Hand Delivered Jessica Days: Prior Verbal Notification: Recipient Understood Notice: Yes Recipient Signature: Yes Med Rec Note Co-signed by Attending: Coverage Notice Comment: REEMA PEREZ export: 02/04/20 8:02 a Patient Name: MOODY BANEGAS Page 66760 at 0955 All edits/amendments must be made on the electronic document DICTATION DATE: 02/04/20953 ASSISTANT WINEMAKER: VIKKI 02/04/20953 RPT#: [id number] DC DATE: STATUS: ADM IN [facility] [address] [place] [address] END OF REPORT
--- NOTE | 2020-02-04 09:57 | NUR ---
OOB WITH PT ASSIST. WILL CONT. PLAN OF CARE.
--- NOTE | 2020-02-04 10:09 | NUR ---
REPORT CALLED TO REHAB. IV AND TELEMETRY DCD.
--- NOTE | 2020-02-04 10:52 | NUR ---
OT NOTE: ASSISTED PT WITH DRESSING AND ADLS THIS AM. ABLE TO WASH FACE AND HANDS WITH SET UP AND WASHCLOTH; LE DRESSING WITH MIN ASSIST FOR PANTS AND MAX ASSIST TO JANUARY SHOES; SET UP FOR UE DRESSING. FUNCTIONAL TRANSFERS WITH MIN/CGA; STANDING BALANCE FOR CLOTHING MGMT WAS POOR...VERY UNSTEADY. AMB WITH WALKER APPROX 150 FT WITH GAIT BELT AND MIN ASSIST TO IMPROVE FUNCITONAL ENDURANCE. PT TO BE TRANSFERRED TO SNF TODAY FOR CONTINUED THERAPY. AMARA CONTRERAS, OTR/L [phone]
--- NOTE | 2020-02-04 12:00 | NUR ---
DC PLANS GIVEN. UNDERSTANDING VOICED. ESCORTED TO [facility] BY W/C.
--- NOTE | 2020-02-04 13:52 | EC ---
PATIENT:SONAM BANEGAS DATE OF SERVICE: 02/01/20 SEX: M MEDICAL RECORD: [id number] DATE OF : [birth year] LOCATION:D.M2 D.211 AGE OF PATIENT: 84 ADMISSION DATE: 02/01/20 REFERRING PHYSICIAN: INTERPRETING PHYSICIAN: FATEMEH ROBLES MD ECHOCARDIOGRAM REPORT ECHO CHARGES 4 ECHO COMPLETE Date: 02/03/20 CLINICAL DIAGNOSIS: SYNCOPE ECHOCARDIOGRAPHIC MEASUREMENTS (adult normal given) AC root (d.<3.7cm) 3.5 cm LV Septum d (<1.2 cm> 1.4 cm Valve Excursion 1.7 cm LV Septum (systole) 1.6 cm Left Atria (s.<4.0cm> 4.0 cm LVPW d(<1.2cm) 1.3 cm RV (d.<2.3cm) 4.3 cm LVPW (sytole) 1.7 cm LV diastole(<5.6CM) 4.8 cm MV E-F(>70mm/sec) cm LV systole 3.8 cm LVOT Diameter 1.9 cm MV exc.(>10mm) 1.9 cm Est.ejection fraction (50-75%) % DOPPLER: LVIT cm/sec A 42.0 cm/sec E 73.0 cm/sec LA cm/sec RVSP 32 mmHg LVOT 91 cm/sec AOP1/2T m/s Asc. Ao 134 cm/sec RVOT 66 cm/sec RA cm/sec PA 103 cm/sec AV Gradient Peak 7.23 mmHg AV Mean 4.21 mmHg AV Area 2.1 cm MV Gradient Peak 2.11 mmHg MV Mean 0.83 mmHg MV Area cm COMMENTS: Rounding Machine Operator: 2 JACOB BE Dye Tank Tender: 3 Dr. Mcleod TAPE# PACS Pericardial Effusion N DATE OF SERVICE: Adequate 2D, color flow imaging, spectral Doppler, and M-Mode Mild LVH. LV internal dimension is normal. Wall motion is normal. EF is greater than or equal to 55%. Aortic valve is tricuspid. No evidence of stenosis by Doppler interrogation. Left atrium is normal at 4.8 cm. Mitral valve shows no prolapse. Trace MR. Right-sided chambers are grossly normal. Mild TR. ECHOCARDIOGRAM REPORT [id number] SONAM BANEGAS TRANSINT:[id number] Voice Confirmation ID: [id number] DOCUMENT ID: [id number] FATEMEH ROBLES MD at 1352 CC: [id number] DICTATION DATE: 02/04/20830 WOOD MACHINE CARVER: 02/04/20 1118 DIS IN 02/04/20 [facility] [address] [place] [address]
--- NOTE | 2020-02-04 13:52 | CN ---
PATIENT NAME:SONAM BANEGAS MEDICAL RECORD: [id number] : 33 LOCATION:DM[facility]apha D.2116 ADMIT DATE: 02/01/20 ACCOUNT: [id number] CONSULTING PHYSICIAN: FATEMEH ROBLES MD REFERRING PHYSICIAN: STEPHANIE DIMAS MD DATE OF CONSULTATION: 02/03/2020 HISTORY OF PRESENT ILLNESS: An 84-year-old gentleman with known history of coronary artery disease, status post intervention of the LAD, history of paroxysmal atrial fibrillation, maintaining sinus with occasional breakthrough via pacemaker interrogation few months ago, admitted with fall, near syncope. Has had problems since orthopedic injury in November with generalized leg weakness, etc. No anginal type symptomatology, been on Betapace and Cordarone in the past, has a history of hypertension as well. We are asked to see him concerning his cardiovascular status. PAST MEDICAL HISTORY: Includes; 1. History of hypertension. 2. Hyperlipidemia. 3. Coronary artery disease as described above. 4. Sick sinus syndrome, status post intervention. 5. Recent supraspinatus tear. MEDICATIONS: Include Ditropan 5 mg p.o. b.i.d., Pepcid 20 every day, Mobic 7.5 b.i.d., clonidine 0.1 daily, amlodipine 10 mg daily, Skelaxin 400 mg bedtime, sotalol 80 b.i.d. SOCIAL HISTORY: Nonsmoker, nondrinker, lives with his . Easily takes care of his ADLs. REVIEW OF SYSTEMS: The patient reports easy bruising but reports no swollen glands. The patient reports no fever, no night sweats, no significant weight gain, no significant weight loss. No significant exercise tolerance. The patient reports no dry eyes, no irritation, no vision change. Patient reports no difficulty hearing and no ear pain. Patient reports no frequent nose bleeds or nose and sinus problems. Patient reports on arm pain on exertion. No shortness of breath while lying down. No history of heart murmur. Patient reports no cough, no wheezing or coughing up blood. Patient reports no abdominal pain, no vomiting. Normal appetite. No diarrhea and not vomiting blood. No nausea and no constipation. Patient reports no incontinence. No difficulty urinating. No hematuria. No increased frequency. Patient reports no muscle aches. No weakness, no arthralgias, no back pain. No swelling of the extremities. Patient reports no abnormal mole, no jaundice, no rashes. Reports no loss of consciousness. No weakness and no numbness. No seizures, dizziness, or headaches. The patient reports no depression, no sleep disturbance, feeling safe in a relationship and no alcohol abuse. Patient reports on fatigue. Reports no runny nose or sinus pressure. No itching, no hives, and no frequent sneezing. ALLERGIES: Unknown. PHYSICAL EXAMINATION: GENERAL: Pleasant gentleman in no acute dissection, appropriate for his stated age. VITAL SIGNS: Blood pressure 137/75, pulse 83 and regular. CONSULT REPORT [id number] SONAM BANEGAS HEENT: Normocephalic, atraumatic. NECK: No bruits noted. HEART: Regular, I to II/ systolic ejection murmur. LUNGS: Good air excursion. ABDOMEN: Soft, nontender. EXTREMITIES: Pulses 2+. No edema. NEUROLOGIC: Grossly intact. DIAGNOSTIC DATA: Pacemaker interrogation shows one episode of atrial fibrillation in November, nothing sustained before since. IMPRESSION AND PLAN: Fall, near-syncope. 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 No contraindication to discharge from a cardiovascular standpoint. TRANSINT:[id number] Voice Confirmation ID: [id number] DOCUMENT ID: [id number] FATEMEH ROBLES MD at 1352 CC: [id number] DICTATION DATE: 02/03/20 1018 TAP DANCER: 02/03/20 1216 DIS IN 02/04/20 [id number] [place] [address]
== END 2020-02-04 12:00 | DRG 315 ==
LOC: D.ER 22:22 → D.M2 02-01 00:16 → OBSVTIME 02-01 17:20 → D.M2 02-01 17:21
PROVIDERS: Emergency Medicine; Family Medicine; ADMIT Family Medicine; ATTEND Family Medicine
DX: I95.9 Hypotension, unspecified (principal); N17.9 Acute kidney failure, unspecified; E27.40 Unspecified adrenocortical insufficiency; E83.42 Hypomagnesemia; F03.90 Unspecified dementia, unspecified severity, without behavioral disturbance, psychotic disturbance, mood disturbance, and anxiety; I25.10 Atherosclerotic heart disease of native coronary artery without angina pectoris; I48.91 Unspecified atrial fibrillation; I12.9 Hypertensive chronic kidney disease with stage 1 through stage 4 chronic kidney disease, or unspecified chronic kidney disease; N18.9 Chronic kidney disease, unspecified; E86.0 Dehydration; R55 Syncope and collapse; Z95.0 Presence of cardiac pacemaker; Z86.73 Personal history of transient ischemic attack (TIA), and cerebral infarction without residual deficits

== ENCOUNTER 2021-04-14 11:13 | Day surgery (SDC) | payer MEDICARE, OTHER ==
[~2021-04-14] VITALS: Ht 177.8 cm; Wt 96.1 kg
--- NOTE | ~2021-04-14 | HEMODYNAMI ---
PATIENT:SONAM BANEGAS MEDICAL RECORD: [id number] : 33 LOCATION:DMustaphaCAT ADMISSION DATE: 04/14/21 Generatedon:113:20 Patient name: SONAM BANEGAS Patient #: [id number] SSN: : 1935 Date of study: 04/14/2021 Page: Of Hemodynamic Procedure Report Patient Data Patient Demographics Procedure consent was obtained First Name: SONAM Gender: Male Last Name: BASSAM : 1935 [facility] Initial: B Age: 85 year(s) Patient #: [id number] Race: Additional ID: [id number] Contact details Address: [address] [place] [address] State: [place] City: [facility] Zip code: [address] Past Medical History Allergies: No known allergies Admission Admission Data Admission Date: 04/14/2021 Admission Time: 11:13 Arrival Date: 04/14/2021 Arrival Time: 0:00 Height (in.): 70 BSA: 2.14 (m2) Height (cm.): 177.8 BMI: 30.37 (kg/m2) Weight (lbs.): 211.64 Weight (kg.): 96 Lab Results Lab Result Date: 04/14/2021 Lab Result Time: 0:00 Biochemistry Name Units Result Min Max BUN mg/dl 20 --(----)*- 7 18 Creatinine mg/dl 0.9 --(-*--)-- 0.6 1.3 eGFR ml/min 85.14340 -*(----)-- 90 120 NONAFRICAN CBC Name Units Result Min Max Hematocrit % 42.9 --(*---)-- 42 54 Hemoglobin g/dl 14.1 --(*---)-- 13.5 17.5 Procedure Procedure Types Cath Procedure Diagnostic Procedure Cardioversion External Procedure Description Procedure Date Procedure Date: 04/14/2021 Procedure Start Time: 13:06 Procedure End Time: 13:18 Procedure Staff Name Function Qamar Angel MD Performing Physician Raj Sánchez MD Additional personnel Kayy Lopez RT Monitor Conner Nava RN Nurse Procedure Data Cath Procedure Fluoroscopy Diagnostic fluoroscopy Total fluoroscopy Time: 0 time: 0 min min Diagnostic fluoroscopy Total fluoroscopy dose: 0 dose: 0 mGy mGy Estimated blood loss: 0 ml Procedure Complications No complications Procedure Medications Medication Administration Route Dosage 0.9% NaCl I.V. 25 ml/hr Oxygen etCO2 Nasal cannula 2 l/min Refer to Anesthesia Notes for Sedation Medications Hemodynamics Rest BSA: 2.14 (m2) O2 Consumption: Estimated: 238.2 (ml/min) O2 Consumption indexed: Estimated:111.31 (ml/min/m) Heart Rate: 65 (bpm) Snapshots Pre Cath Intra NCS Post Cath Vital Signs Time Heart Resp SPO2 etCO2 NIBP (mmHg) Rhythm Pain Sedation Rate (ipm) (%) (mmHg) Status Level (bpm) 13:00:39 85 23 96 155/109(122) A-Fib (Missing) 10(A) 13:04:55 75 19 98 29.2 165/109(125) A-Fib (Missing) 10(A) 13:09:00 79 9 84 0 110/82(96) Paced (Missing) 10(A) 13:13:06 64 21 90 0 124/76(89) NSR (Missing) 10(A) 13:17:14 60 25 96 28.5 88/67(84) NSR (Missing) 10(A) Medications Time Medication Route Dose Verified Delivered Reason Notes Effective ness by by 12:59:57 0.9% NaCl I.V. 25 Qamar Conner used for ml/hr Stanley Nava RN procedure 13:00:09 Oxygen etCO2 2 Qamar Conner used for Nasal l/min Stanley Nava process coordinator cannula 13:00:13 Refer to Qamar Conner Anesthesia Stanley Nava RN Notes for Sedation Medications Procedure Log Time Note 12:35:17 Informed consent obtained and on chart 12:39:14 Procedure Status Cardioversion. 12:39:15 Time tracking: Regular hours (M-F 7:00 - 5:00) 12:39:19 Plan of Care:Hemodynamics will remain stable., Cardiac rhythm will remain stable., Comfort level will be maintained., Respiratory function will remain adequate., Patient/ family verbilizes understanding of procedure., Procedure tolerated without complication., Recovers from procedure without complications.. 12:39:32 H&P Date Dictated: 04/01/2021 Within 30 days and on chart., H&P Addendum completed by physician on day of procedure. (MUST COMPLETE FOR ALL OUTPATIENTS). 12:39:38 Patient allergic to No known allergies 12:43:49 Lab Result : Creatinine 0.9 mg/dl 12::49 Lab Result : BUN 20 mg/dl 12::49 Lab Result : eGFR NONAFRICAN 85.17714 ml/min 12:43:49 Lab Result : Hematocrit 42.9 % 12:43:49 Lab Result : Hemoglobin 14.1 g/dl 12:46:01 Patient Weight : 211.64 lbs 12:46:04 Patient Height : 70 inches 12:46:09 Arrival Date: 04/14/2021 12:00:00 AM 12:47:56 Kayy Lopez RT(R) sent for patient. Start room use. 12:54:55 Patient arrived from Pre/Post Procedure Room to [facility] 3. Patient remains on bed/stretcher for procedure. 12:54:56 Warm blankets applied, and africa hugger turned on for patient comfort. 12:54:57 Correct patient and procedure confirmed by team. 12:54:58 ECG and BP/O2 sat monitors applied to patient. 12:55:43 Telma Oneill present and monitoring patient for TIVA. 12:55:50 Pre-procedure instructions explained to patient. 12:55:50 Pre-op teaching completed and patient verbalized understanding. 12:55:55 Family in patients room. 12:55:56 Patient NPO since Midnight. 12:59:25 Vital chart was started 12:59:39 Full Disclosure recording started 12:59:42 Rhythm: atrial fibrillation with PPM 12:59:44 Is the patient allergic to Iodine/contrast media? No. 12:59:45 Is patient on blood thinner?Yes 12:59:48 ACC The patient was administered the following blood thiners within the last 24 hours: Xarelto 12:59:49 Patient diabetic? No. 12:59:57 0.9% NaCl 25 ml/hr I.V. was administered by Conner Nava RN; used for procedure; Verbal order read back and verified. 13:00:09 Oxygen 2 l/min etCO2 Nasal cannula was administered by Conner Nava RN; used for procedure; Verbal order read back and verified. 13:00:13 Refer to Anesthesia Notes for Sedation Medications was administered by Conner Nava RN; ; Verbal order read back and verified. 13:00:15 Previous problem with sedation/anesthesia? No ? 13:00:16 Snore? Yes 13:00:17 Sleep apnea? No 13:00:18 Opens mouth fully? Yes 13:00:19 Deviated septum? No 13:00:20 Sticks out tongue? Yes 13:00:21 Airway obstruction? No ? 13:00:23 Dentures? No ? 13:00:26 Patient pain scale 0/10 ?. 13:00:33 IV patent on arrival in left forearm with 0.9% NaCl at [facility]. 13:00:35 Lab results completed and on chart. 13:00:37 Alarms reviewed by Solitario Walalce 13:01:28 Quick Combo opened to sterile field. 13:03:26 --------ALL STOP TIME OUT------ 13:03:27 Final Timeout: patient, procedure, and site verified with staff and physician. All members of the team are in agreement. 13:03:31 Fire Safety Assessment: C--Open oxygen or nitrous oxide is being used. 13:03:33 Physical assessment completed. ASA score P 2 - A patient with mild systemic disease as per Qamar Angel MD. 13:03:36 Sedation plan: TIVA Medication:Propofol 13:04:22 Baseline sample Acquired. 13:05:56 ------Cardioversion------ 13:06:00 Procedure started. 13:06:07 Quick combo pads placed on patients chest and back. 13:08:16 Defibrillator synced and charged to 200 Joules. 13:08:23 Shock delivered. 13:10:05 Patient cardioverted to sinus rhythm , paced. 13:10:28 Procedure ended.(Physican Out) 13:11:02 Fluoroscopy time 00.00 minutes. 13:11:04 Flurop Dose total: 0 13:11:04 Fluoroscopy dose: 0 mGy 13:11:06 Dose Area Product 0 mGy/cm. 13:13:08 Post-procedure physical assessment completed. ASA score P 2 - A patient with mild systemic disease as per Qamar Angel MD. 13:15:15 Post procedure rhythm: sinus rhythm , paced 13:15:17 Estimated blood loss: 0 ml 13:15:19 Post procedure instruction explained to patient.Patient verbalizes understanding. 13:15:19 Patient needs reinforcement of post procedure teaching. 13:15:34 Procedure and supply charges have been captured, reviewed, submitted and are correct. 13:15:37 Procedure Complication : No complications 13:15:40 Operative report dictated upon procedure completion. 13:15:40 See physician's report for complete and final results. 13:18:20 Vital chart was stopped 13:18:23 Report given to Pre/Post Procedure Room. 13:18:25 Patient transfered to Pre/Post Procedure Room with Bed. 13:18:27 Procedure ended. 13:18:27 Full Disclosure recording stopped 13:18:31 End room use (Document Last) 13:18:45 End room use (Document Last) Device Usage Item Manufacture Quantity Catalog Hospital Part Current Minimal Lot# / Name Number Charge Number Stock Stock [facility]# Code [facility] QuesCom 1 [id number] Combo Signature Audit [place] Stage Time Signature Unsigned Intra-Procedure 04/14/2021 Kayy Lopez 1:18:45 PM RT(R) Intra-Procedure 04/14/2021 Conner Nava RN 1:19:55 PM Intra-Procedure 04/14/2021 Qamar Angel MD 1:20:22 PM [facility] [address] [place] [address]
[~2021-04-14 11:13] MED LIST changes: +AMIODARONE HCL200 MG; +BAYER CHEWABLE81 MG PO; +BENICAR40 MG PO; +BETAPACE 80 MG80 MG PO; +COZAAR50 MG PO; +MECLIZINE HCL25 MG PO; +OXYBUTYNIN CHLOR5 MG PO; +PACERONE100 MG PO
[2021-04-14] MEDS ORDERED: LOSARTAN-HCTZ1 EAC1 PO (11:48)
[2021-04-14] MEDS ORDERED: DESMOPRESSIN A0.2 MG PO (11:49)
[2021-04-14] MEDS ORDERED: MOBIC7.5 MG PO (11:50)
[2021-04-14] MEDS ORDERED: PROTONIX40 MG PO (11:51)
[2021-04-14] MEDS ORDERED: XARELTO15 MG PO (11:51)
[2021-04-14] MEDS ORDERED: STOOL SOFTENER100 M1 PO (11:52)
[2021-04-14] MEDS ORDERED: VITAMIN C500 M1 PO (11:52)
[2021-04-14 12:08] VITALS: BP 136/90; Ht 177.8 cm; Wt 96.1 kg
[2021-04-14 12:20] LABS: EOSINOPHILS 6.9 % (0-7); HEMATOCRIT 42.9 % (42.0-54.0); HEMOGLOBIN 14.1 g/dL (13.5-17.5); LYMPHOCYTES 16.4 % (15-50); MCH 30.7 pg (26.0-34.0); MCHC 32.9 g/dL (31.0-37.0); MCV 93.5 fL (80.0-100.0); MEAN PLATELET VOLUME 8.9 fL (7.4-10.4); MONOCYTES 10.5 % (2-11); NEUTROPHILS 65.2 % (40-80); PLATELET COUNT 207 10x3/uL (130-400); RBC 4.58 10x6/uL (4.20-6.10); RDW 13.5 % (11.5-14.5); WBC 8.9 10x3/uL (4.8-10.8)
[2021-04-14 12:30] LABS: CALC OSMOLALITY 281 mosm/kg (275-300); CALCIUM 9.2 mg/dL (8.5-10.1); CARBON DIOXIDE 26.2 mmol/L (21.0-32.0); CHLORIDE - SERUM 106 mmol/L (98-107); CREATININE - SERUM 0.9 mg/dL (0.6-1.3); GLUCOSE 107 mg/dL (74-106); POTASSIUM - SERUM 4.2 mmol/L (3.5-5.1); SODIUM 140 mmol/L (136-145); UREA NITROGEN 20 mg/dL (7-18); eGFR NON AFRICAN AMERICAN 85 mL/min (90-120)
[2021-04-14 12:38] LABS: INR 1.23 (0.85-1.17); PROTIME 14.3 SECONDS (11.6-15.0)
--- NOTE | 2021-04-14 13:26 | NUR ---
PT ARRIVES TO ROOM 8 VIA STRETCHER S/P CARDIOVERSION. PT PLACED ON MONITOR AND ALARMS ON. SEE RN ASSESMENT. PT DENIES PAIN OR NEEDS. IV INFUSING PER ORDERS , CALL LIGHT WITHIN REACH SPOUSE AT BEDSIDE
--- NOTE | 2021-04-14 13:45 | NUR ---
PT SITTING UP IN BED DENIES PAIN OR NEEDS, VSS, PACED PER MONITOR, IV INFUSING PER ORDERS, CALL LIGHT WITH IN REACH, SPOUSE AT BEDSIDE
--- NOTE | 2021-04-14 14:00 | NUR ---
PT RESTING QUIETLY WITH NO NEEDS, REMAINS PACED , VSS, SATS 98% RA, SPOUSE AT BEDSIDE, DENIES NEEDS OR PAIN , IV INFUSING PER ORDERS, CALL LIGHT WITHIN REACH
--- NOTE | 2021-04-14 14:30 | NUR ---
DISCHARGE TEACHING STARTED AND COMPLETED, PT AND SPOUSE VERBALIZED UNDERSTANDING , QUESTIONS AND CONCERNS ADDRESSED
--- NOTE | 2021-04-14 15:04 | NUR ---
DR RAMIREZ TO ROOM TO VISIT WITH PT AND SPOUSE
--- NOTE | 2021-04-14 15:10 | NUR ---
PIV D/C'D WITH CATH TIP INTACT. TOLERATED WELL. PT INSTRUCTED TO GET UP AND DRESSED AT THIS TIME. AT BEDSIDE TO ASSIST. CALL LIGHT WITHIN REACH.
--- NOTE | 2021-04-14 15:15 | NUR ---
PT TAKEN TO VEHICLE BY WHEELCHAIR. NO S/S OF DISTRESS NOTED. ALL BELONGINGS AND PAPERWORK IN HAND.
== END 2021-04-14 15:15 | disposition home or self-care (01) ==
LOC: D.CATH 11:13
PROVIDERS: ATTEND Internal Medicine Cardiovascular Disease
DX: I48.91 Unspecified atrial fibrillation (principal); Z95.0 Presence of cardiac pacemaker; I10 Essential (primary) hypertension; I49.5 Sick sinus syndrome

== ENCOUNTER 2021-04-17 10:57 | Inpatient (IN) | payer MEDICARE, OTHER ==
[~2021-04-17] VITALS: Ht 180.3 cm; Wt 95.5 kg
[~2021-04-17 10:57] MED LIST changes: +DESMOPRESSIN A0.2 MG PO; +LOSARTAN-HCTZ1 EAC1 PO; +PROTONIX40 MG PO; +STOOL SOFTENER100 M1 PO; +VITAMIN C500 M1 PO; +XARELTO15 MG PO
[2021-04-17 11:28] LABS: HEMOGLOBIN 14.2 g/dL (13.5-17.5); MCH 30.5 pg (26.0-34.0); MCHC 32.4 g/dL (31.0-37.0)
[2021-04-17 11:29] LABS: BASOPHILS 0.1 % (0-2); EOSINOPHILS 0 % (0-7); HEMATOCRIT 43.9 % (42.0-54.0); LYMPHOCYTES 5.1 % (15-50); NEUTROPHILS 86.8 % (40-80); PLATELET COUNT 198 10x3/uL (130-400); RBC 4.67 10x6/uL (4.20-6.10); RDW 13.7 % (11.5-14.5)
[2021-04-17 11:40] LABS: CALC OSMOLALITY 291 mosm/kg (275-300); CALCIUM 9.1 mg/dL (8.5-10.1); CARBON DIOXIDE 26.4 mmol/L (21.0-32.0); CHLORIDE - SERUM 105 mmol/L (98-107); CREATININE - SERUM 1.1 mg/dL (0.6-1.3); GLUCOSE 118 mg/dL (74-106); POTASSIUM - SERUM 4.4 mmol/L (3.5-5.1); SODIUM 144 mmol/L (136-145); UREA NITROGEN 25 mg/dL (7-18); eGFR NON AFRICAN AMERICAN 67 mL/min (90-120)
[2021-04-17 11:43] LABS: APTT 32.7 SECONDS (22.8-39.4); INR 1.88 (0.85-1.17); PROTIME 20.1 SECONDS (11.6-15.0)
[2021-04-17 12:01] LABS: ALBUMIN 4.6 g/dL (3.4-5.0); ALKALINE PHOSPHATASE 130 U/L (30-120); ALT (SGPT) 102 U/L (10-68); BILIRUBIN - TOTAL 1.26 mg/dL (0.2-1.3); CKMB 2.5 U/L (0.0-3.6); CREATINE KINASE 99 UL (21-232); LIPASE 98 U/L (73-393); MAGNESIUM - SERUM 1.9 mg/dL (1.8-2.4); PROTEIN - SERUM 6.9 g/dL (6.4-8.2)
[2021-04-17 12:03] LABS: TROPONIN-I 0.146 ng/mL (0.000-0.060)
[2021-04-17 13:05] VITALS: BP 168/82
[2021-04-17 14:29] LABS: BILIRUBIN NEGATIVE (NEGATIVE); KETONE 1+ mg/dL (< 1+); NITRITE NEGATIVE (NEGATIVE); PH 5.5 (5.0-8.0); SQUAMOUS EPITHELIAL <1 HPF (0-4); UROBILINOGEN NORMAL mg/dL (< 2); WHITE CELLS - URINE 2 HPF (0-1)
--- NOTE | 2021-04-17 17:00 | NUR ---
DR. RAMIREZ HERE. PACEMAKER INTERROGATED. STATES PT IS IN AFIB BUT IS ATRIAL PACED NEEDED.
[2021-04-17 17:57] LABS: CKMB 2.9 U/L (0.0-3.6); CREATINE KINASE 104 UL (21-232)
[2021-04-17 17:58] LABS: TROPONIN-I 0.137 ng/mL (0.000-0.060)
[2021-04-17 18:27] VITALS: BP 122/71; Ht 180.3 cm; Wt 95.5 kg
--- NOTE | 2021-04-17 19:00 | NUR ---
REPORT RECEIVED. PATIENT IS AAOX4, LYING IN SEMI-FOWLERS POSITION. NO S/S OF DISTRESS OBSERVED, RR EVEN AND UNLABORED ON 2L O2 VIA NC. PIV TO LT WRIST, SL. PATIENT DENIES NEEDS AT THIS TIME. CL IN REACH, BED LOCKED AND LOWERED. WILL CPOC.
[2021-04-17 20:42] VITALS: BP 130/16
[2021-04-18 01:03] LABS: CREATINE KINASE 90 UL (21-232)
[2021-04-18 01:05] LABS: TROPONIN-I 0.108 ng/mL (0.000-0.060)
[2021-04-18 01:13] VITALS: BP 95/47
[2021-04-18 01:20] VITALS: BP 132/79
--- NOTE | 2021-04-18 01:28 | NUR ---
PATIENT REPEATEDLY TAKES OF TELEMETRY WHILE SLEEPING. HAS ALSO ACCIDENTLY PULLED OUT PIV WITH CATH TIP INTACT. PATIENT ALSO TAKES OXYGEN OFF AND GETS SOB, REMINDED HIS TO KEEP HIS OXYGEN ON.
--- NOTE | 2021-04-18 04:50 | NUR ---
NEW 22G PIV INSERTED TO RT FA, GOOD BLOOD RETURN AND FLUSHED WITH EASE. IV FLUIDS RESTARTED.
[2021-04-18 06:49] LABS: BASOPHILS 0.2 % (0-2); EOSINOPHILS 0.4 % (0-7); HEMATOCRIT 42.2 % (42.0-54.0); HEMOGLOBIN 13.3 g/dL (13.5-17.5); IMMATURE GRANULOCYTES 0.2 % (0-5); LYMPHOCYTE ABS# 1.18 10x3/uL (1.32-3.57); LYMPHOCYTES 8.8 % (15-50); MCH 30.4 pg (26.0-34.0); MCHC 31.5 g/dL (31.0-37.0); MEAN PLATELET VOLUME 11.4 fL (7.4-10.4); MONOCYTES 9.8 % (2-11); NEUTROPHIL ABS# 10.86 10x3/uL (1.78-5.38); NEUTROPHILS 80.6 % (40-80); PLATELET COUNT 190 10x3/uL (130-400); RBC 4.38 10x6/uL (4.20-6.10); WBC 13.5 10x3/uL (4.8-10.8)
[2021-04-18 06:50] LABS: MCV 96.3 fL (80.0-100.0)
--- NOTE | 2021-04-18 07:20 | NUR ---
RECIEVE REPORT. ALERT AND ORIENTED X4. RESTING IN BED. CONTROLLED AFIB ON TELEMETRY. AWARE OF ELEVATED TROPONIN. DENIES ANY NEEDS. CONTINUE PLAN OF CARE AND SAFETY PRECAUTIONS.
[2021-04-18 07:28] LABS: ALKALINE PHOSPHATASE 101 U/L (30-120); BILIRUBIN - DIRECT 0.32 mg/dL (0.00-0.30); BILIRUBIN - INDIRECT 0.63 mg/dL (0.00-1.00); BILIRUBIN - TOTAL 0.95 mg/dL (0.2-1.3); CALC OSMOLALITY 293 mosm/kg (275-300); CALCIUM 8.6 mg/dL (8.5-10.1); CHLORIDE - SERUM 106 mmol/L (98-107); GLUCOSE 110 mg/dL (74-106); PROTEIN - SERUM 6.4 g/dL (6.4-8.2); SODIUM 145 mmol/L (136-145); UREA NITROGEN 25 mg/dL (7-18); eGFR NON AFRICAN AMERICAN 75 mL/min (90-120)
[2021-04-18 07:37] LABS: ALT (SGPT) 70 U/L (10-68)
[2021-04-18 07:56] LABS: CREATINE KINASE 92 UL (21-232)
[2021-04-18 07:57] LABS: TROPONIN-I 0.098 ng/mL (0.000-0.060)
[2021-04-18 08:27] LABS: CARBON DIOXIDE 30.9 mmol/L (21.0-32.0)
[2021-04-18 08:28] LABS: ALBUMIN 3.3 g/dL (3.4-5.0)
[2021-04-18 16:31] VITALS: BP 154/78
--- NOTE | 2021-04-18 19:31 | MORECARE ---
CASE MANAGEMENT DISCHARGE SUMMARY PATIENT: SONAM BANEGAS UNIT: [id number] ADM DATE: 04/18/21 AGE: 85 : 34 SEX: M ROOM/BED: D.2136 AUTHOR: GRACE,DOC PHYSICIAN: REFERRING PHYSICIAN: ASHA BELLA MD DATE OF SERVICE: 04/18/21 Case Management Discharge Planning Summary COMMENTS ENTERED DATE: 04/18/21 19:30 CT COMMENT TYPE: Discharge Planning REVIEWER: David Redmond Met with patient to serve BANSAL. BANSAL delivered, explained, but patient declined to sign the document. Document placed in chart. Copy left with patient. Patient stated that he lives independently with his spouse, Sonny Banegas, . Patient stated that he has cane for support at times. Patient stated that his primary physician is Jace Green and his pharmacy is [facility] [address] CM discussed availability of home health, rehab services, and medical equipment. Patient declined HHS, SNF, IPR, and DME. Patient voiced no other needs at this time and is satisfied with DC plan. CM will continue to follow and will assist as needed with dc plans/needs. DCP REVIEW SUMMARY ANTICIPATED D/C DATE: EXPECTED LOS : CASE STATUS: DCP Initiated INITIAL REVIEW: 04/17/2021 INITIAL REVIEWER: David Redmond FINAL DISCHARGE DISPOSITION: : FINAL REVIEWER: FINAL REVIEW DATE: DCP [employer] Questions & Answers QUESTION: ANSWER : PATIENT: SONAM BANEGAS ENCOUNTER: [id number] MEDICAL RECORD#: [id number] ADMISSION DATE: 04/18/2021 DISCHARGE DATE: ATTENDING MD: ASHA WU : AGE: 85 MARITAL STATUS: M DC PLAN ID: [id number] FACILITY: [facility] PRINTED ON: 04/18/21 19:30 CT All edits/amendments must be made on the electronic document DICTATION DATE: 04/18/211929 SEASONAL CLERK: VIKKI 04/18/211929 RPT#: [id number] DC DATE: STATUS: ADM IN [facility] [address] [place] [address] END OF REPORT
[2021-04-18 20:35] VITALS: BP 136/92
--- NOTE | 2021-04-18 21:59 | NUR ---
PATIENT GOT UP TO THE BATHROOM AND ACCIDENTLY PULLED OUT PIV WITH CATH TIP INTACT. RODEO RIDER IS ASSISTING PATIENT INTO SHOWER AT THIS TIME.
--- NOTE | 2021-04-18 22:09 | HP ---
PATIENT: SONAM BANEGAS MEDICAL RECORD: [id number] ACCOUNT: [id number] LOCATION:[address] : 34 ADMISSION DATE: 04/18/21 PCP: No PCP HISTORY AND PHYSICAL EXAMINATION REASON FOR ADMISSION: Abdominal pain with diaphoresis. HISTORY OF PRESENT ILLNESS: The patient is an 85-year-old male who had undergone a DC cardioversion by Dr. Angel two days ago. He felt well until last night, went to bed about 10:00 after eating a meal at 7. He awakened with feeling of diaphoresis and generalized abdominal pain, more in the right upper quadrant. He had some nausea, but no vomiting. He denied true chest pain. He had a large bowel movement. His symptoms felt better when he came in because of recurrent symptoms this morning. He denies fever or dysuria. 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 PAST SURGICAL HISTORY: He has had prostatectomy, cataract surgery on both eyes, appendectomy, deviated septum repair, pacemaker placement, PTCA, and DC cardioversion times 2. FAMILY HISTORY: Mother of stroke at 65. Father of old age at 92. 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 He is . Quit smoking years ago. Does not drink alcohol currently. ALLERGIES: None. MEDICATIONS: Xarelto 15 mg daily, [place] 3 fish oil 1000 mg capsule daily, sotalol 120 mg b.i.d., losartan/HCT 100/25 one q.a.m., aspirin 81 mg daily, Mobic 7.5 mg b.i.d., Protonix 40 mg daily, stool softener, Colace 100 mg daily, desmopressin acetate tablet 0.2 mg p.o. b.i.d., vitamin C 500 mg a day, folic acid 1 mg a day, Theragran vitamin one daily, glucosamine chondroitin 1 cap daily. REVIEW OF SYSTEMS: GENERAL: He denies weight loss, fever, or fatigue. HEENT: No recent visual change, sinus congestion, sore throat, or hearing difficulty. RESPIRATORY: He had some mild shortness of breath with onset of diaphoresis, abdominal pain last night that has resolved. He denies sputum production or cough or pleuritic chest pain. CARDIAC: He denies chest pain exertional or at rest or palpitations. GASTROINTESTINAL: He has had some nausea with abdominal discomfort last night, resolved with large BM this morning that was not melenic. Denies constipation. GENITOURINARY: He has mild urinary incontinence. MUSCULOSKELETAL: He has arthralgias in lumbar spine and knees. No sciatica. ENDOCRINE: Denies polyuria, polydipsia, heat or cold intolerance. NEUROLOGIC: No history of headaches, remote history of stroke. PSYCHIATRIC: Denies depressed mood. HISTORY AND PHYSICAL [id number] SONAM BANEGAS PHYSICAL EXAMINATION: VITAL SIGNS: His temperature is 97.9 orally, pulse 61 occasional ectopic beat, respirations are 15, blood pressure 162/75 with a sat of 99% on room air. GENERAL: He is alert and oriented at this time, in no acute distress. HEENT: His eyes were clear with lens implants both eyes. Sclerae are nonicteric. Oropharynx is unremarkable. NECK: Supple. CHEST: No wheeze or rales appreciated. He is not retracting. HEART: Regular rate and rhythm. ABDOMEN: Mildly obese, essentially nontender to my exam throughout, but earlier by ED was tender in the right upper quadrant. RECTAL: Deferred. EXTREMITIES: Trace pretibial edema bilaterally. SKIN: Nonicteric. LABORATORY DATA AND DIAGNOSTIC STUDIES: He has a white count of 13,000 with 86% neutrophils, H&H 14 and 43.9. Chemistry showed anion gap of 17, BUN 25, creatinine 1.1, glucose 118, AST is 103, ALT is 102, alkaline phosphatase is 130, all mildly elevated. CPK-MB is 2.5, troponin 0.146. ProBNP is 3425. Lipase is normal. Urine; 1+ protein and ketones, microscopic red cells and white blood cells noted. Bilirubin is negative. INR is 1.88. Imaging performed by ED showed abdominal CT abdomen and pelvis with contrast showing small to trace right and left pleural effusions, right renal cyst 4 cm, gallbladder within normal limits. No ductal dilatation. Stomach, small intestine, large intestine within normal limits. Appendix is not visualized. Lymph nodes unremarkable. Aortic and pelvic atherosclerosis without an aneurysm. Degenerative changes of the lumbar spine without aggressive osseous lesions. No pelvic adenopathy, free fluid, or inflammatory process noted. Prostate is surgically absent. ASSESSMENT: 1. Abdominal pain with diaphoresis, etiology unknown. 2. Constipation with large BM relieving 90% of his abdominal pain. 3. Atrial fibrillation/flutter, currently in sinus rhythm. 4. Minimal pleural effusions. 5. History of prostate cancer. 6. Leukocytosis. PLAN: ED physician felt the patient had pneumonia based on CT findings. He clinically does not have that. I am more concerned about abdominal cause for his symptoms. I spoke with Dr. Angel who will interrogate his pacemaker to be sure he is in sinus rhythm. He will be placed on antibiotics, but we will withhold Zithromax due to risk of sotalol interaction, possibly obtain PIPIDA scan of the morning concerning his symptomatology. TRANSINT:[id number] Voice Confirmation ID: [id number] DOCUMENT ID: [id number] HISTORY AND PHYSICAL [id number] SONAM BANEGAS TIMOTHY MD at 2209 CC: [id number] DICTATION DATE: 04/17/21 1741 SAFETY AND SECURITY MANAGER: 04/17/21 1859 ADM IN [facility] [address] [place] [address]
[2021-04-19 05:28] VITALS: BP 123/63
--- NOTE | 2021-04-19 07:20 | NUR ---
RECIEVE REPORT. ALERT AND ORIENTED X4. SITTING UP IN BED. UNCONTROLLED AFIB 105 WITH BBB ON TELEMETRY. DENIES ANY NEEDS. CONTINUE PLAN OF CARE AND SAFETY PRECAUTIONS.
[2021-04-19 08:58] LABS: BASOPHILS 0.6 % (0-2); EOSINOPHILS 1.1 % (0-7); HEMATOCRIT 41.6 % (42.0-54.0); HEMOGLOBIN 13.7 g/dL (13.5-17.5); LYMPHOCYTES 12.5 % (15-50); MCH 30.8 pg (26.0-34.0); MCHC 32.8 g/dL (31.0-37.0); MEAN PLATELET VOLUME 9.7 fL (7.4-10.4); MONOCYTES 12.2 % (2-11); NEUTROPHILS 73.6 % (40-80); PLATELET COUNT 179 10x3/uL (130-400); RBC 4.44 10x6/uL (4.20-6.10); RDW 13.5 % (11.5-14.5); WBC 11.2 10x3/uL (4.8-10.8)
[2021-04-19 09:00] VITALS: BP 132/81
[2021-04-19 09:05] LABS: BILIRUBIN - DIRECT 0.28 mg/dL (0.00-0.30); BILIRUBIN - INDIRECT 0.65 mg/dL (0.00-1.00); BILIRUBIN - TOTAL 0.93 mg/dL (0.2-1.3); PROTEIN - SERUM 6.4 g/dL (6.4-8.2)
[2021-04-19 09:23] LABS: MCV 93.7 fL (80.0-100.0)
[2021-04-19 12:00] VITALS: BP 126/71
--- NOTE | 2021-04-19 19:30 | NUR ---
RECEIVED BEDSIDE REPORT. ROUNDING COMPLETE. PATIENT IS ALERT AND ORIENTED, RESTING COMFORTABLY IN BED. RESPIRATIONS ARE EVEN AND UNLABORED. NO S/S OF DISTRESS. NO C/O PAIN. CALL LIGHT WITHIN REACH. WILL CPOC.
[2021-04-19 21:22] VITALS: BP 113/63
[2021-04-20 00:04] VITALS: BP 110/64
[2021-04-20 05:10] VITALS: BP 106/70
[2021-04-20 05:47] LABS: HEMOGLOBIN 15.3 g/dL (13.5-17.5); MONOCYTES 10.8 % (2-11)
[2021-04-20 05:53] LABS: BASOPHILS 0.7 % (0-2); EOSINOPHILS 3.4 % (0-7); HEMATOCRIT 46.2 % (42.0-54.0); LYMPHOCYTES 17.7 % (15-50); MCH 30.9 pg (26.0-34.0); MCHC 33.1 g/dL (31.0-37.0); MCV 93.2 fL (80.0-100.0); MEAN PLATELET VOLUME 9.8 fL (7.4-10.4); NEUTROPHILS 67.4 % (40-80); PLATELET COUNT 203 10x3/uL (130-400); RBC 4.96 10x6/uL (4.20-6.10); RDW 13.7 % (11.5-14.5); WBC 12.4 10x3/uL (4.8-10.8)
[2021-04-20 06:35] LABS: ALBUMIN 3.2 g/dL (3.4-5.0); ANION GAP 10.3 mmol/L (8-16); BILIRUBIN - TOTAL 0.78 mg/dL (0.2-1.3); CALCIUM 8.9 mg/dL (8.5-10.1); CARBON DIOXIDE 33.8 mmol/L (21.0-32.0); CREATININE - SERUM 1.1 mg/dL (0.6-1.3); PROTEIN - SERUM 6.8 g/dL (6.4-8.2)
[2021-04-20 06:36] LABS: POTASSIUM - SERUM 3.1 mmol/L (3.5-5.1)
--- NOTE | 2021-04-20 07:20 | NUR ---
RECIEVE REPORT. ALERT AND ORIENTED X4. SITTING UP IN BED. AT BEDSIDE. NO SIGNS OF DISTRESS. PLAN FOR DISCHARGE TODAY. CONTINUE PLAN OF CARE AND SAFETY PRECAUTIONS.
[2021-04-20] MEDS ORDERED: AUGMENTIN 875-11 TAB PO (07:27)
[2021-04-20 08:00] VITALS: BP 130/71
--- NOTE | 2021-04-20 10:57 | NUR ---
ALERT AND ORIENTED X4. SITTING UP IN BED. DC RT FA IV TIP INTACT. DISCHARGE INSTRUCTIONS GIVEN VERBALLY AND WRITTEN. DISCHARGE PAPERS SIGNED ON CHART. NOTIFY SPOUSE OF DISCHARGE ORDER. CONTINUE PLAN OF CARE AND SAFETY PRECAUTIONS.
[2021-04-20 11:13] LABS: HEPATITIS C ANTIBODY <0.1 S/CO RAT (0.0-0.9)
--- NOTE | 2021-04-20 12:59 | MORECARE ---
CASE MANAGEMENT DISCHARGE SUMMARY PATIENT: SONAM BANEGAS UNIT: [id number] ADM DATE: 04/18/21 AGE: 85 : 34 SEX: M ROOM/BED: D.2136 AUTHOR: GRACE,DOC PHYSICIAN: REFERRING PHYSICIAN: ASAH BELLA MD DATE OF SERVICE: 04/20/21 Case Management Discharge Planning Summary COMMENTS ENTERED DATE: 04/18/21 19:30 CT COMMENT TYPE: Discharge Planning REVIEWER: David Redmond Met with patient to serve BANSAL. BANSAL delivered, explained, but patient declined to sign the document. Document placed in chart. Copy left with patient. Patient stated that he lives independently with his spouse, Sonny Banegas, . Patient stated that he has cane for support at times. Patient stated that his primary physician is Jace Green and his pharmacy is [facility] [address] CM discussed availability of home health, rehab services, and medical equipment. Patient declined HHS, SNF, IPR, and DME. Patient voiced no other needs at this time and is satisfied with DC plan. CM will continue to follow and will assist as needed with dc plans/needs. DCP REVIEW SUMMARY ANTICIPATED D/C DATE: EXPECTED LOS : CASE STATUS: DCP Initiated INITIAL REVIEW: 04/17/2021 INITIAL REVIEWER: David Redmond FINAL DISCHARGE DISPOSITION: : FINAL REVIEWER: FINAL REVIEW DATE: DCP [facility] Questions & Answers QUESTION: ANSWER : PATIENT: SONAM BANEGAS ENCOUNTER: [id number] MEDICAL RECORD#: [id number] ADMISSION DATE: 04/18/2021 DISCHARGE DATE: 04/20/2021 ATTENDING MD: ASHA WU : AGE: 85 MARITAL STATUS: M DC PLAN ID: [id number] FACILITY: [facility] PRINTED ON: 04/20/21 12:58 CT All edits/amendments must be made on the electronic document DICTATION DATE: 04/20/211257 SALES SUPPORT ADMINISTRATOR: VIKKI 04/20/21 1258 RPT#: [id number] DC DATE:04/20/21 STATUS: DIS IN [facility] [address] [place] [address] END OF REPORT
--- NOTE | 2021-04-20 16:38 | MORECARE ---
CASE MANAGEMENT DISCHARGE SUMMARY PATIENT: SONAM BANEGAS UNIT: [id number] ADM DATE: 04/18/21 AGE: 85 : 34 SEX: M ROOM/BED: D.2136 AUTHOR: NOLA EDWARDS PHYSICIAN: REFERRING PHYSICIAN: ASHA BELLA MD DATE OF SERVICE: 04/20/21 Case Management Discharge Planning Summary COMMENTS ENTERED DATE: 04/18/21 19:30 CT COMMENT TYPE: Discharge Planning REVIEWER: David Redmond Met with patient to serve BANSAL. BANSAL delivered, explained, but patient declined to sign the document. Document placed in chart. Copy left with patient. Patient stated that he lives independently with his spouse, Sonny Banegas, . Patient stated that he has cane for support at times. Patient stated that his primary physician is Jace Green and his pharmacy is [facility] [address] CM discussed availability of home health, rehab services, and medical equipment. Patient declined HHS, SNF, IPR, and DME. Patient voiced no other needs at this time and is satisfied with DC plan. CM will continue to follow and will assist as needed with dc plans/needs. DCP REVIEW SUMMARY ANTICIPATED D/C DATE: EXPECTED LOS : 0 CASE STATUS: DCP Complete INITIAL REVIEW: 04/17/2021 INITIAL REVIEWER: David Redmond FINAL DISCHARGE DISPOSITION: 01 : Home or Self Care (Routine Discharge) FINAL REVIEWER: Lu Warren FINAL REVIEW DATE: 04/20/2021 DCP [facility] Questions & Answers QUESTION: ANSWER : PATIENT: SONAM BANEGAS ENCOUNTER: [id number] MEDICAL RECORD#: [id number] ADMISSION DATE: 04/18/2021 DISCHARGE DATE: 04/20/2021 ATTENDING MD: ASHA WU : AGE: 85 MARITAL STATUS: M DC PLAN ID: [id number] FACILITY: [facility] PRINTED ON: 04/20/21 16:38 CT All edits/amendments must be made on the electronic document DICTATION DATE: 04/20/211637 RN HEDIS: VIKKI 04/20/211637 RPT#: [id number] DC DATE:04/20/21 STATUS: DIS IN [facility] [address] [place] [address] END OF REPORT
== END 2021-04-20 12:56 | disposition home or self-care (01) | DRG 392 ==
LOC: D.ER 10:57 → D.EDHOLD 13:27 → OBSVTIME 13:27 → D.M2 15:53
PROVIDERS: Family Medicine; ADMIT Family Medicine; ATTEND Family Medicine
DX: K59.00 Constipation, unspecified (principal); J90 Pleural effusion, not elsewhere classified; I48.0 Paroxysmal atrial fibrillation; Z85.46 Personal history of malignant neoplasm of prostate; D72.829 Elevated white blood cell count, unspecified; R61 Generalized hyperhidrosis; Z79.01 Long term (current) use of anticoagulants; N18.9 Chronic kidney disease, unspecified; R50.9 Fever, unspecified; Z86.73 Personal history of transient ischemic attack (TIA), and cerebral infarction without residual deficits; I12.9 Hypertensive chronic kidney disease with stage 1 through stage 4 chronic kidney disease, or unspecified chronic kidney disease; K21.9 Gastro-esophageal reflux disease without esophagitis; Z95.0 Presence of cardiac pacemaker